=== PATIENT | male | born 1960 | race Caucasian/White ===

== ENCOUNTER 2016-09-18 17:37 | Emergency (ER) | payer OTHER ==
--- NOTE | 2016-09-18 18:50 | DIAGNOSTIC IMAGING REPORT ---
PROCEDURE: XR CHEST 1 VIEW INDICATION: COPD. Shortness of breath. TECHNIQUE: Portable AP view (1815 hours). (Two images). COMPARISON: None. FINDINGS: Pulmonary hyperexpansion and chronic obstructive pulmonary disease. There is a 1.8 cm nodular density overlying the right upper lung (overlying right anterior second rib). Lungs otherwise clear. Heart and mediastinum are normal. Thorax is normal. IMPRESSION: 1. Chronic obstructive pulmonary disease. 2. There is a 1.8 cm nodular density right upper lung. Comparison with prior outside studies is recommended. If these are unavailable, CT would be recommended. 3. Findings discussed with Dr. Kenneth Matthews.
--- NOTE | 2016-09-18 20:59 | ED CLINICAL REPORT ---
Clinical Report - Physicians/Mid Levels [facility] [address] [place] [address] 09/18/2016 17:37 Patient: GUSTAVO OSUNA Time Seen: 17:49. Arrived- By private vehicle. Historian- patient. HISTORY OF PRESENT ILLNESS Chief Complaint: DYSPNEA. This started today and is still present. It was abrupt in onset and has been intermittent and waxing/waning. The dyspnea is described as moderate. The patient has had a cough, wheezing and chills and experienced sweating episodes. He has had scant amounts of thick, brown sputum. No fever, calf pain or foot swelling. He has had chest soreness (from coughing). Recent medical care: The patient was seen recently at another facility in a clinic. ( He had a CT chest done 2 days ago at [place] for his pulmonary nodule). REVIEW OF SYSTEMS No chills, fever, sweats, calf pain or chest pain. No cough, difficulty breathing, pedal edema, palpitations or abdominal pain. No constipation, diarrhea, nausea, vomiting or urinary problems. He has home O2. All systems otherwise negative, except as recorded above. PAST HISTORY PCP - [facility] - [place]. Problems: Pulmonary Nodule. Back Pain. COPD - Chronic Obstructive Pulmonary Disease. Medications: Albuterol Sulfate Inhalation. Fluticasone Propionate (Inhal) Inhalation. Combivent. Gabapentin Oral. Allergies: Penicillins. SOCIAL HISTORY Current every day light tobacco smoker (cigarette)- less than 1/2 a pack per day (None for the past 4 days). Heavy alcohol use; consumes liquor occasionally. History of drug use: marijuana. Is a local resident. FAMILY HISTORY Denies family medical history. ADDITIONAL NOTES The nursing notes have been reviewed. PHYSICAL EXAM Vital Signs: 09/18/2016 17:51 BP: 161/101. HR: 126. RR: 28. O2 saturation: 95%. Temp: 98.1 F. Have been reviewed. Appearance: Alert. No acute distress. Eyes: Pupils equal, round and reactive to light. ENT: Pharynx normal. Uvula midline. Neck: Normal inspection. No jugular venous distention. Neck supple. CVS: Normal heart rate and rhythm. Heart sounds normal. Respiratory: Decreased air movement. Abdomen: Soft and nontender. No organomegaly. Back: Normal inspection. Skin: Skin warm and dry. Normal skin color. Normal skin turgor. Extremities: Calf tenderness. Extremities exhibit normal ROM. No lower extremity edema. LABS, X-RAYS, AND EKG EKG: Rate: 115. Right axis deviation. pulmonary disease pattern. Prior EKG unavailable. The study has been independently viewed by me. Chest X-ray: (IMPRESSION: 1. Chronic obstructive pulmonary disease. 2. There is a 1.8 cm nodular density right upper lung. Comparison with prior outside studies is recommended. If these are unavailable, CT would be recommended.). The X-rays were interpreted contemporaneously by me and discussed with the radiologist. Laboratory Tests: CBC w Diff: (NBA: 09/18/2016 18:00) ( [facility] Final results Test Result Flag Units (Reference) WHITE BLOOD COUNT 15.8 H K/uL (4.5-11.5) RED BLOOD COUNT 4.69 M/uL (4.50-5.90) HEMOGLOBIN 13.4 L gm/dL (13.5-17.5) HEMATOCRIT 41.5 % (41.0-53.0) MEAN CELL VOLUME 89 fL (80-100) MEAN CORPUSCULAR HGB 29 pg (26-34) MEAN CORPUSCULAR HGB CONC 32 g/dL (31-37) RED CELL DISTRIBUTION WIDTH 15.0 H % (11.6-14.8) PLATELET COUNT 411 H K/uL (150-400) NEUTROPHIL % 78.3 H % (50-75) LYMPH % 16.1 L % (25-40) MONO % 4.6 % (3-14) EOSINOPHIL % 0.6 % (0-4) BASOPHIL % 0.4 % (0-2) PT with INR: (NBA: 09/18/2016 18:00) ( [facility]21) Final results Test Result Flag Units (Reference) INR 1.0 (0.8-1.2) Low Intensity Therapy: INR 1.5-2.0 PT range 18.5-23.1Mod.Intensity Therapy: INR 2.0-3.0 PT range 23.1-31.5High Intensity Therapy: INR 2.5-3.5 PT range 27.4-35.5High Intensity Therapy 2: INR 3.0-4.0 PT range 31.5-39.3 APTT 30 SECONDS (24-34) BNP: (NBA: 09/18/2016 18:00) ( [facility] [place] 19:16) Final results Test Result Flag Units (Reference) B-TYPE NATRIURETIC PEPTIDE 23.0 pg/ml (5-100) Lactate, Serum: (NBA: 09/18/2016 18:00) ( [facility] 09/18[facility] 18:33) Final results Test Result Flag Units (Reference) LACTIC ACID 0.9 mmol/L (0.4-2.0) CHEM 13 PANEL: (NBA: 09/18/2016 18:00) ( [facility]18[facility] 18:33) Final results Test Result Flag Units (Reference) GLUCOSE 125 H mg/dL (70-110) BUN 9 mg/dL (7-18) CREATININE 0.7 mg/dL (0.6-1.3) Estimated GFR >60 mL/min Estimated GFR- >60 mL/min Note: Persistent reduction over 3 months in eGFR<60 mL/min/1.73 m2 defines CKD. Patients with eGFR values>=60 mL/min/1.73 m2 may also have CKD if evidence ofpersistent proteinuria. Additional information may be foundat [email or web address].org. SODIUM 140 mmol/L (136-145) POTASSIUM 4.1 mmol/L (3.5-5.1) CHLORIDE 103 mmol/L (98-107) CARBON DIOXIDE 34 H mmol/L (21-32) CALCIUM 9.0 mg/dL (8.5-10.1) TOTAL PROTEIN 7.5 g/dL (6.4-8.2) ALBUMIN 3.6 g/dL (3.3-5.0) BILIRUBIN, TOTAL 0.6 mg/dL (0.0-1.0) ALKALINE PHOSPHATASE 63 U/L (46-116) AST (SGOT) 23 U/L (15-37) ALT (SGPT) 32 U/L (12-78) CPK 181 U/L (24-260) MAGNESIUM 1.8 mg/dL (1.8-2.4) TROPONIN I <0.05 ng/mL (0.00-1.5) TROPONIN REFERENCE RANGE:<0.1 NEGATIVE0.1-1.5 INDETERMINANT>1.5 POSITIVE Rapid Influenza Screen: (NBA: 09/18/2016 18:10) ( MsgRcvd 09/18/2016 18:43) Final results SPECIMEN DESCRIPTION: COMPUTER CONSULTANT SWAB Test Result Flag Units (Reference) RAPID INFLUENZA SCREEN DATE: 09/18/16 INFLUENZA A: NEGATIVE SCREEN FOR INFLUENZA A INFLUENZA B: NEGATIVE SCREEN FOR INFLUENZA B . PROGRESS AND PROCEDURES Patient/family counseled. Old medical records ordered. Disposition: Discharged. Condition: stable. CLINICAL IMPRESSION Pulmonary nodule right upper lobe and left upper lobe. Acute exacerbation of COPD. INSTRUCTIONS Avoid tobacco smoke. Do not smoke- benefits of smoking cessation discussed (>3 -10 minutes). Seek medical help to quit smoking. Warnings: Further evaluation is necessary. GENERAL WARNINGS: Return or contact your physician immediately if your condition worsens or changes unexpectedly, if not improving as expected, or if other problems arise. Prescription Medications: Prednisone 20 mg: take 3 orally every day for 5 days. Dispense fifteen (15). No refills. Zithromax 250 mg tablets: take 1 orally every day for 4 days. Total course 4 days. No refills. Substitution is permissible. Follow-up: Follow up with your doctor in five days. Call for an appointment. Follow up with a typing pool supervisor as scheduled. Understanding of the discharge instructions verbalized by patient. (Electronically signed by Kenneth Matthews MD 09/23/2016 3:37) Addenda for GUSTAVO OSUNA VisitID: [id number] Date: 09/18/2016 09/18/2016 21:28 Duoneb (Ipratropium-Albuterol) Neb [place] Nebulizer 1 unit dose given. Given by the respiratory therapist. Allergies verified and confirmed 5 rights. (Electronically signed by Yarelis Mesa R.N. - 09/18/2016 21:28)
--- NOTE | 2016-09-18 20:59 | ED CLINICAL REPORT ---
Clinical Report - Physicians/Mid Levels [facility] [address] [place] [address] 09/18/2016 17:37 Patient: GUSTAVO OSUNA Time Seen: 17:49. Arrived- By private vehicle. Historian- patient. HISTORY OF PRESENT ILLNESS Chief Complaint: DYSPNEA. This started today and is still present. It was abrupt in onset and has been intermittent and waxing/waning. The dyspnea is described as moderate. The patient has had a cough, wheezing and chills and experienced sweating episodes. He has had scant amounts of thick, brown sputum. No fever, calf pain or foot swelling. He has had chest soreness (from coughing). Recent medical care: The patient was seen recently at another facility in a clinic. ( He had a CT chest done 2 days ago at [place] for his pulmonary nodule). REVIEW OF SYSTEMS No chills, fever, sweats, calf pain or chest pain. No cough, difficulty breathing, pedal edema, palpitations or abdominal pain. No constipation, diarrhea, nausea, vomiting or urinary problems. He has home O2. All systems otherwise negative, except as recorded above. PAST HISTORY PCP - [facility] - [place]. Problems: Pulmonary Nodule. Back Pain. COPD - Chronic Obstructive Pulmonary Disease. Medications: Albuterol Sulfate Inhalation. Fluticasone Propionate (Inhal) Inhalation. Combivent. Gabapentin Oral. Allergies: Penicillins. SOCIAL HISTORY Current every day light tobacco smoker (cigarette)- less than 1/2 a pack per day (None for the past 4 days). Heavy alcohol use; consumes liquor occasionally. History of drug use: marijuana. Is a local resident. FAMILY HISTORY Denies family medical history. ADDITIONAL NOTES The nursing notes have been reviewed. PHYSICAL EXAM Vital Signs: 09/18/2016 17:51 BP: 161/101. HR: 126. RR: 28. O2 saturation: 95%. Temp: 98.1 F. Have been reviewed. Appearance: Alert. No acute distress. Eyes: Pupils equal, round and reactive to light. ENT: Pharynx normal. Uvula midline. Neck: Normal inspection. No jugular venous distention. Neck supple. CVS: Normal heart rate and rhythm. Heart sounds normal. Respiratory: Decreased air movement. Abdomen: Soft and nontender. No organomegaly. Back: Normal inspection. Skin: Skin warm and dry. Normal skin color. Normal skin turgor. Extremities: Calf tenderness. Extremities exhibit normal ROM. No lower extremity edema. LABS, X-RAYS, AND EKG EKG: Rate: 115. Right axis deviation. pulmonary disease pattern. Prior EKG unavailable. The study has been independently viewed by me. Chest X-ray: (IMPRESSION: 1. Chronic obstructive pulmonary disease. 2. There is a 1.8 cm nodular density right upper lung. Comparison with prior outside studies is recommended. If these are unavailable, CT would be recommended.). The X-rays were interpreted contemporaneously by me and discussed with the radiologist. Laboratory Tests: CBC w Diff: (NBA: 09/18/2016 18:00) ( [facility] 18:17) Final results Test Result Flag Units (Reference) WHITE BLOOD COUNT 15.8 H K/uL (4.5-11.5) RED BLOOD COUNT 4.69 M/uL (4.50-5.90) HEMOGLOBIN 13.4 L gm/dL (13.5-17.5) HEMATOCRIT 41.5 % (41.0-53.0) MEAN CELL VOLUME 89 fL (80-100) MEAN CORPUSCULAR HGB 29 pg (26-34) MEAN CORPUSCULAR HGB CONC 32 g/dL (31-37) RED CELL DISTRIBUTION WIDTH 15.0 H % (11.6-14.8) PLATELET COUNT 411 H K/uL (150-400) NEUTROPHIL % 78.3 H % (50-75) LYMPH % 16.1 L % (25-40) MONO % 4.6 % (3-14) EOSINOPHIL % 0.6 % (0-4) BASOPHIL % 0.4 % (0-2) PT with INR: (NBA: 09/18/2016 18:00) ( [facility] [place]18[facility] 18:21) Final results Test Result Flag Units (Reference) INR 1.0 (0.8-1.2) Low Intensity Therapy: INR 1.5-2.0 PT range 18.5-23.1Mod.Intensity Therapy: INR 2.0-3.0 PT range 23.1-31.5High Intensity Therapy: INR 2.5-3.5 PT range 27.4-35.5High Intensity Therapy 2: INR 3.0-4.0 PT range 31.5-39.3 APTT 30 SECONDS (24-34) BNP: (NBA: 09/18/2016 18:00) ( [facility] [place] 09/18/2016 19:16) Final results Test Result Flag Units (Reference) B-TYPE NATRIURETIC PEPTIDE 23.0 pg/ml (5-100) Lactate, Serum: (NBA: 09/18/2016 18:00) ( [facility] 09/18[facility]2016 18:33) Final results Test Result Flag Units (Reference) LACTIC ACID 0.9 mmol/L (0.4-2.0) CHEM 13 PANEL: (NBA: 09/18/2016 18:00) ( [facility] 09/18[facility] 18:33) Final results Test Result Flag Units (Reference) GLUCOSE 125 H mg/dL (70-110) BUN 9 mg/dL (7-18) CREATININE 0.7 mg/dL (0.6-1.3) Estimated GFR >60 mL/min Estimated GFR- >60 mL/min Note: Persistent reduction over 3 months in eGFR<60 mL/min/1.73 m2 defines CKD. Patients with eGFR values>=60 mL/min/1.73 m2 may also have CKD if evidence ofpersistent proteinuria. Additional information may be foundat [email or web address]. SODIUM 140 mmol/L (136-145) POTASSIUM 4.1 mmol/L (3.5-5.1) CHLORIDE 103 mmol/L (98-107) CARBON DIOXIDE 34 H mmol/L (21-32) CALCIUM 9.0 mg/dL (8.5-10.1) TOTAL PROTEIN 7.5 g/dL (6.4-8.2) ALBUMIN 3.6 g/dL (3.3-5.0) BILIRUBIN, TOTAL 0.6 mg/dL (0.0-1.0) ALKALINE PHOSPHATASE 63 U/L (46-116) AST (SGOT) 23 U/L (15-37) ALT (SGPT) 32 U/L (12-78) CPK 181 U/L (24-260) MAGNESIUM 1.8 mg/dL (1.8-2.4) TROPONIN I <0.05 ng/mL (0.00-1.5) TROPONIN REFERENCE RANGE:<0.1 NEGATIVE0.1-1.5 INDETERMINANT>1.5 POSITIVE Rapid Influenza Screen: (NBA: 09/18/2016 18:10) ( MsgRcvd 09/18/2016 18:43) Final results SPECIMEN DESCRIPTION: C 40A CREW CHIEF SWAB Test Result Flag Units (Reference) RAPID INFLUENZA SCREEN DATE: 09/18/16 INFLUENZA A: NEGATIVE SCREEN FOR INFLUENZA A INFLUENZA B: NEGATIVE SCREEN FOR INFLUENZA B . PROGRESS AND PROCEDURES Patient/family counseled. Old medical records ordered. Disposition: Discharged. Condition: stable. CLINICAL IMPRESSION Pulmonary nodule right upper lobe and left upper lobe. Acute exacerbation of COPD. INSTRUCTIONS Avoid tobacco smoke. Do not smoke- benefits of smoking cessation discussed (>3 -10 minutes). Seek medical help to quit smoking. Warnings: Further evaluation is necessary. GENERAL WARNINGS: Return or contact your physician immediately if your condition worsens or changes unexpectedly, if not improving as expected, or if other problems arise. Prescription Medications: Prednisone 20 mg: take 3 orally every day for 5 days. Dispense fifteen (15). No refills. Zithromax 250 mg tablets: take 1 orally every day for 4 days. Total course 4 days. No refills. Substitution is permissible. Follow-up: Follow up with your doctor in five days. Call for an appointment. Follow up with a international nurse as scheduled. Understanding of the discharge instructions verbalized by patient. (Electronically signed by Kenneth Matthews MD 09/23/2016 3:37) Addenda for GUSTAVO OSUNA VisitID: [id number] Date: 09/18/2016 09/18/2016 21:28 Duoneb (Ipratropium-Albuterol) Neb TX Nebulizer 1 unit dose given. Given by the respiratory therapist. Allergies verified and confirmed 5 rights. (Electronically signed by Yarelis Mesa R.N. - 09/18/2016 21:28)
--- NOTE | 2016-09-18 21:00 | ED NURSING NOTES ---
Clinical Report - Nurses [facility] [address] [place] [address] 09/18/2016 17:37 Patient: GUSTAVO OSUNA TRIAGE Triage time 17:45 Sep 18 2016. Acuity: LEVEL 3. Chief Complaint: SHORTNESS OF BREATH. 17:51 09/18/16. SEPSIS SCREEN: Sepsis Screen: positive heart rate greater than 90 and respiratory rate greater than 20. --17:51 Yarelis Mesa R.N. 17:51 09/18/16. BP: 161/101. HR: 126. RR: 28. O2 saturation: 95%. Temp: 98.1 F. Pain level now 0/10. --17:51 Yarelis Mesa R.N. Weight: 63.5 kg stated. Height/Length: 74 inches Per Patient. BMI: 18. --17:44 Yarelis Mesa R.N. Medications Gabapentin Oral. --17:51 Yarelis Mesa R.N. Combivent. --17:51 Yarelis Mesa R.N. Fluticasone Propionate (Inhal) Inhalation. --17:51 Yarelis Mesa R.N. Medication/allergy information source: the patient. --17:51 Yarelis Mesa R.N. Allergies Penicillins. --17:49 Yarelis Mesa R.N. History Arrived by EMS. Historian: patient. Onset. (7 days ago). He has had a cough productive of moderate amounts of brown sputum. No fever or chills. 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 PAST MEDICAL HX: Has not received seasonal influenza immunization. SOCIAL HX: Smoker- current status unknown (stopped 4 days ago). No alcohol use or drug use. No infectious disease exposure. ABUSE ASSESSMENT: No report of abuse. SELF HARM ASSESSMENT: A self harm assessment was performed. The patient answered "no" to the question "Have you recently felt down, depressed, or hopeless?", "Have you noticed less interest or pleasure in doing things?", "Do you have thoughts of harming or killing yourself?", "Are you here because you tried to hurt yourself?", "Have you ever tried to hurt yourself before today?", "Have you recently had thoughts about harming or killing others?" and "Do you have any dangerous items in your possession?". FALL RISK ASSESSMENT: Fall risk assessment completed. No fall risk identified. NUTRITIONAL RISK ASSESSMENT: The nutritional risk assessment revealed no deficiencies. FUNCTIONAL ASSESSMENT: Functional assessment: no impairments noted. LEARNING NEEDS ASSESSMENT: The learning needs assessment revealed no barriers. SKIN INTEGRITY ASSESSMENT: Skin integrity risk assessment completed. No skin integrity risk identified. --17:51 Yarelis Mesa R.N. PROBLEMS: Back Pain. COPD - Chronic Obstructive Pulmonary Disease. --17:51 Yarelis Mesa R.N. Interventions ID band on patient. --17:51 Yarelis Mesa R.N. PHYSICAL ASSESSMENT 17:52 09/18/16. To room via stretcher. GENERAL / NEURO / PSYCH: Alert. Oriented X 4. Appears in distress. HEENT: Mucous membranes are pink. RESPIRATORY: Moderate respiratory distress. The patient can speak a few words at a time. Prolonged expirations. Cough productive of moderate amounts of brown sputum. Decreased breath sounds. CVS: Capillary refill less than 2 seconds. GI / : Bowel sounds within normal limits. SKIN: Skin is warm and dry. Normal skin turgor. --17:52 Yarelis Mesa R.N. NURSING PROGRESS NOTES 17:53 09/18/16. The initial plan of care for this patient includes an assessment with efforts to address the patient's anxiety; impairment of the respiratory system. This plan of care was discussed with the patient. Oxygen administered at 3 liters. media monitor, pulse oximeter and NIBP monitor placed on patient; pvc monitor- Lead II; monitor alarms on. Patient gowned. Reassurance given to the patient. Two patient identifiers checked. Call light placed in reach. Side rails up x 2. Bed placed in lowest position. Brakes of bed on. --17:53 Yarelis Mesa R.N. 18:00 09/18/2016 Site #1 started prior to arrival by EMS via IV in the left forearm with an 18g angiocath, with good blood return. Saline lock flushed with 5 mL saline. --18:07 Yarelis Mesa R.N. 18:00 09/18/16. Patient ID band checked for patient name and birthdate: patient confirmed. Blood samples drawn from the left forearm peripheral IV site by nurse per protocol: rainbow set. Initial blood discarded and additional blood sent to lab. Line flushed with 10 mL normal saline post blood draw (LACTIC ACID DRAWN). --18:07 Yarelis Mesa R.N. 18:43 09/18/16. BP: 146/77. HR: 118. RR: 24. O2 saturation: 100%. Pain level now 3/10. --18:44 Yarelis Mesa R.N. Cardiac rhythm: sinus tachycardia. --18:44 Yarelis Mesa R.N. EKG time: (1840). EKG was performed by a tech and shown to the ED physician. --19:00 Kaleigh Mathews 19:25 09/18/2016 SOLU-MEDROL (MethylPREDNISolone Sodium Succ) IVP 125 mg given over 1 minute(s) via site #1. Allergies verified and confirmed 5 rights. IV patency established. IV site checked: no pain, redness, or swelling. IV flushed thoroughly pre- and post-medication administration. IVP given by RN. --19:30 Yarelis Mesa R.N. 19:32 09/18/2016 Zithromax PO Tablets 500 mg given. Allergies verified and confirmed 5 rights. --19:33 Yarelis Mesa R.N. 20:09 09/18/16. Reassessment after medication administered. Overall patient status is improved- he states feels better. CVS: Normal sinus rhythm noted. SKIN: Skin is warm. Skin color within normal limits. --20:09 Yarelis Mesa R.N. Cardiac rhythm: sinus tachycardia. The patient is calm and resting quietly. Overall patient status is improved- he states feels better. GENERAL / NEURO / PSYCH: The patient reports fatigue. RESPIRATORY: Decreased breath sounds. Patient waiting for disposition. --21:08 Yarelis Mesa R.N. 21:07 09/18/16. BP: 96/74. HR: 104. RR: 24. O2 saturation: 98%. Pain level now 0/10. --21:08 Yarelis Mesa R.N. DISPOSITION / DISCHARGE 21:27 09/18/2016 Site #1 removed upon discharge. Catheter intact. Bandaid applied. --21:27 Yarelis Mesa R.N. 21:27 09/18/16. Condition at departure: improved and stable. The goals identified in the patient's plan of care were met. No learning barriers present. Reviewed medication(s) side effects, precautions, dosing and course information. Prescription(s) given to the patient. Reviewed fever care and nebulizer use instructions. Reviewed referral to a lines tender and primary care physician for followup. Patient verbalized understanding. Written instructions provided in Croatian. The patient was discharged home and accompanied by family. He left the Emergency Department in a wheelchair and via private vehicle. Family member driving. FALL RISK ASSESSMENT: Fall risk assessment completed. No fall risk identified. --21:27 Yarelis Mesa R.N. 21:07 09/18/16. BP: 96/74. HR: 104. RR: 24. O2 saturation: 98%. Pain level now 0/10. --21:27 Yarelis Mesa R.N. Departure time: :Sep 18 2016. --21:27 Yarelis Mesa R.N. Locked/Released at 09/18/2016 21:28 by Yarelis Mesa R.N.
--- NOTE | 2016-09-18 21:00 | ED NURSING NOTES ---
Clinical Report - Nurses [facility] [address] [place] [address] 09/18/2016 17:37 Patient: GUSTAVO OSUNA TRIAGE Triage time 17:45 Sep 18 2016. Acuity: LEVEL 3. Chief Complaint: SHORTNESS OF BREATH. 17:51 09/18/16. SEPSIS SCREEN: Sepsis Screen: positive heart rate greater than 90 and respiratory rate greater than 20. --17:51 Yarelis Mesa R.N. 17:51 09/18/16. BP: 161/101. HR: 126. RR: 28. O2 saturation: 95%. Temp: 98.1 F. Pain level now 0/10. --17:51 Yarelis Mesa R.N. Weight: 63.5 kg stated. Height/Length: 74 inches Per Patient. BMI: 18. --17:44 Yarelis Mesa R.N. Medications Gabapentin Oral. --17:51 Yarelis Mesa R.N. Combivent. --17:51 Yarelis Mesa R.N. Fluticasone Propionate (Inhal) Inhalation. --17:51 Yarelis Mesa R.N. Medication/allergy information source: the patient. --17:51 Yarelis Mesa R.N. Allergies Penicillins. --17:49 Yarelis Mesa R.N. History Arrived by EMS. Historian: patient. Onset. (7 days ago). He has had a cough productive of moderate amounts of brown sputum. No fever or chills. Treatment CLOTH TESTER QUALITY: See EMS report. PAST MEDICAL HX: Has not received seasonal influenza immunization. SOCIAL HX: Smoker- current status unknown (stopped 4 days ago). No alcohol use or drug use. No infectious disease exposure. ABUSE ASSESSMENT: No report of abuse. SELF HARM ASSESSMENT: A self harm assessment was performed. The patient answered "no" to the question "Have you recently felt down, depressed, or hopeless?", "Have you noticed less interest or pleasure in doing things?", "Do you have thoughts of harming or killing yourself?", "Are you here because you tried to hurt yourself?", "Have you ever tried to hurt yourself before today?", "Have you recently had thoughts about harming or killing others?" and "Do you have any dangerous items in your possession?". FALL RISK ASSESSMENT: Fall risk assessment completed. No fall risk identified. NUTRITIONAL RISK ASSESSMENT: The nutritional risk assessment revealed no deficiencies. FUNCTIONAL ASSESSMENT: Functional assessment: no impairments noted. LEARNING NEEDS ASSESSMENT: The learning needs assessment revealed no barriers. SKIN INTEGRITY ASSESSMENT: Skin integrity risk assessment completed. No skin integrity risk identified. --17:51 Yarelis Mesa R.N. PROBLEMS: Back Pain. COPD - Chronic Obstructive Pulmonary Disease. --17:51 Yarelis Mesa R.N. Interventions ID band on patient. --17:51 Yarelis Mesa R.N. PHYSICAL ASSESSMENT 17:52 09/18/16. To room via stretcher. GENERAL / NEURO / PSYCH: Alert. Oriented X 4. Appears in distress. HEENT: Mucous membranes are pink. RESPIRATORY: Moderate respiratory distress. The patient can speak a few words at a time. Prolonged expirations. Cough productive of moderate amounts of brown sputum. Decreased breath sounds. CVS: Capillary refill less than 2 seconds. GI / : Bowel sounds within normal limits. SKIN: Skin is warm and dry. Normal skin turgor. --17:52 Yarelis Mesa R.N. NURSING PROGRESS NOTES 17:53 09/18/16. The initial plan of care for this patient includes an assessment with efforts to address the patient's anxiety; impairment of the respiratory system. This plan of care was discussed with the patient. Oxygen administered at 3 liters. lunchroom monitor, pulse oximeter and NIBP monitor placed on patient; monitoring engineer- Lead II; monitor alarms on. Patient gowned. Reassurance given to the patient. Two patient identifiers checked. Call light placed in reach. Side rails up x 2. Bed placed in lowest position. Brakes of bed on. --17:53 Yarelis Mesa R.N. 18:00 09/18/2016 Site #1 started prior to arrival by EMS via IV in the left forearm with an 18g angiocath, with good blood return. Saline lock flushed with 5 mL saline. --18:07 Yarelis Mesa R.N. 18:00 09/18/16. Patient ID band checked for patient name and birthdate: patient confirmed. Blood samples drawn from the left forearm peripheral IV site by nurse per protocol: rainbow set. Initial blood discarded and additional blood sent to lab. Line flushed with 10 mL normal saline post blood draw (LACTIC ACID DRAWN). --18:07 Yarelis Mesa R.N. 18:43 09/18/16. BP: 146/77. HR: 118. RR: 24. O2 saturation: 100%. Pain level now 3/10. --18:44 Yarelis Mesa R.N. Cardiac rhythm: sinus tachycardia. --18:44 Yarelis Mesa R.N. EKG time: (1840). EKG was performed by a tech and shown to the ED physician. --19:00 Kaleigh Mathews 19:25 09/18/2016 SOLU-MEDROL (MethylPREDNISolone Sodium Succ) IVP 125 mg given over 1 minute(s) via site #1. Allergies verified and confirmed 5 rights. IV patency established. IV site checked: no pain, redness, or swelling. IV flushed thoroughly pre- and post-medication administration. IVP given by RN. --19:30 Yarelis Mesa R.N. 19:32 09/18/2016 Zithromax PO Tablets 500 mg given. Allergies verified and confirmed 5 rights. --19:33 Yarelis Mesa R.N. 20:09 09/18/16. Reassessment after medication administered. Overall patient status is improved- he states feels better. CVS: Normal sinus rhythm noted. SKIN: Skin is warm. Skin color within normal limits. --20:09 Yarelis Mesa R.N. Cardiac rhythm: sinus tachycardia. The patient is calm and resting quietly. Overall patient status is improved- he states feels better. GENERAL / NEURO / PSYCH: The patient reports fatigue. RESPIRATORY: Decreased breath sounds. Patient waiting for disposition. --21:08 Yarelis Mesa R.N. 21:07 09/18/16. BP: 96/74. HR: 104. RR: 24. O2 saturation: 98%. Pain level now 0/10. --21:08 Yarelis Mesa R.N. DISPOSITION / DISCHARGE 21:27 09/18/2016 Site #1 removed upon discharge. Catheter intact. Bandaid applied. --21:27 Yarelis Mesa R.N. 21:27 09/18/16. Condition at departure: improved and stable. The goals identified in the patient's plan of care were met. No learning barriers present. Reviewed medication(s) side effects, precautions, dosing and course information. Prescription(s) given to the patient. Reviewed fever care and nebulizer use instructions. Reviewed referral to a antitank assault gunner and primary care physician for followup. Patient verbalized understanding. Written instructions provided in Cypriot. The patient was discharged home and accompanied by family. He left the Emergency Department in a wheelchair and via private vehicle. Family member driving. FALL RISK ASSESSMENT: Fall risk assessment completed. No fall risk identified. --21:27 Yarelis Mesa R.N. 21:07 09/18/16. BP: 96/74. HR: 104. RR: 24. O2 saturation: 98%. Pain level now 0/10. --21:27 Yarelis Mesa R.N. Departure time: :Sep 18 2016. --21:27 Yarelis Mesa R.N. Locked/Released at 09/18/2016 21:28 by Yarelis Mesa R.N.
--- NOTE | 2016-09-18 21:00 | ED ORDER SUMMARY ---
..... Patient: GUSTAVO OSUNA OrderSheet [facility] VisitID: [id number] [address] [place] [address] 56y, M Registration Date/Time: 09/18/2016 ORDER SHEET Weight: 63.5 kg (stated) Allergies: Penicillins GENERAL ORDERS: Chest 1V (room 14) Urgent (18:04 09/18/2016 EInderbitzen R.N. per protocol) (18:23 EInderbitzen R.N.) Sport Shoe Spike Assembler (Continuous) (18:04 09/18/2016 EInderbitzen R.N. per protocol) (18:22 EInderbitzen R.N.) CBC w Diff Urgent (18:09/18/2016 EInderbitzen R.N. per protocol) (18:23 EInderbitzen R.N.) CMP Urgent (18:09/18/2016 EInderbitzen R.N. per protocol) (18:23 EInderbitzen R.N.) Cardiac Panel Stat (18:09/18/2016 EInderbitzen R.N. per protocol) (18:23 EInderbitzen R.N.) PT with INR Urgent (18:04 09/18/2016 EInderbitzen R.N. per protocol) (18:23 EInderbitzen R.N.) PTT Urgent (18:09/18/2016 EInderbitzen R.N. per protocol) (18:23 EInderbitzen R.N.) Oxygen (2 L/min) (NC) (18:04 09/18/2016 EInderbitzen R.N. per protocol) (18:22 EInderbitzen R.N.) Pulse oximeter (18:09/18/2016 EInderbitzen R.N. per protocol) (18:22 EInderbitzen R.N.) EKG - ER Stat (18:09/18/2016 EInderbitzen R.N. per protocol) (18:23 EInderbitzen R.N.) Lactate, Serum Urgent (18:09/18/2016 EInderbitzen R.N. per protocol) (18:23 EInderbitzen R.N.) Rapid Influenza Screen (Nasal Pharyngeal) (speed reading teacher swab) Urgent (18:05 09/18/2016 EInderbitzen R.N. verbal order read back to Charles WEST) (18:23 EInderbitzen R.N.) BNP Urgent (18:50 09/18/2016 Charles WEST) (Ack 18:54 LTapper) MEDICATION ORDERS: Zithromax PO 500 mg (NOW) (19:26 09/18/2016 Charles WEST) (19:33 EIndermumtaz R.N.) DuoNeb Neb Tx 1 unit dose (NOW) (19:26 09/18/2016 Charles WEST) ([facility]ck 19:[facility]) IV FLUIDS: IV Saline Lock (18:23 09/18/2016 EIndermoraimazen R.N. verbal order read back to Charles WEST) (18:24 EInderbitzen R.N.) Solu-MEDROL IV 125 mg (NOW) (19:18 09/18/2016 Charles WEST) (19:30 EInderbitzen R.N.) ORDER SHEET NOTES: [Electronically signed by Yarelis Mesa R.N. (21:28 09/18/2016)] [Electronically signed by Kenneth Matthews MD (03:37 09/23/2016)] [Electronically locked/signed by Yarelis Mesa R.N. (21:28 09/18/2016)]
--- NOTE | 2016-09-18 21:00 | ED ORDER SUMMARY ---
..... Patient: GUSTAVO OSUNA OrderSheet [facility] VisitID: [id number] [address] [place] [address] 56y, M Registration Date/Time: 09/18/2016 ORDER SHEET Weight: 63.5 kg (stated) Allergies: Penicillins GENERAL ORDERS: Chest 1V (room 14) Urgent (18:04 09/18/2016 EInderbitzen R.N. per protocol) (18:23 EInderbitzen R.N.) Before School Babysitter (Continuous) (18:04 09/18/2016 EInderbitzen R.N. per protocol) (18:22 EInderbitzen R.N.) CBC w Diff Urgent (18:09/18/2016 EInderbitzen R.N. per protocol) (18:23 EInderbitzen R.N.) CMP Urgent (18:09/18/2016 EInderbitzen R.N. per protocol) (18:23 EInderbitzen R.N.) Cardiac Panel Stat (18:09/18/2016 EInderbitzen R.N. per protocol) (18:23 EInderbitzen R.N.) PT with INR Urgent (18:04 09/18/2016 EInderbitzen R.N. per protocol) (18:23 EInderbitzen R.N.) PTT Urgent (18:09/18/2016 EInderbitzen R.N. per protocol) (18:23 EInderbitzen R.N.) Oxygen (2 L/min) (NC) (18:04 09/18/2016 EInderbitzen R.N. per protocol) (18:22 EInderbitzen R.N.) Pulse oximeter (18:09/18/2016 EInderbitzen R.N. per protocol) (18:22 EInderbitzen R.N.) EKG - ER Stat (18:09/18/2016 EInderbitzen R.N. per protocol) (18:23 EInderbitzen R.N.) Lactate, Serum Urgent (18:09/18/2016 EInderbitzen R.N. per protocol) (18:23 EInderbitzen R.N.) Rapid Influenza Screen (Nasal Pharyngeal) (deputy commissioner swab) Urgent (18:05 09/18/2016 EInderbitzen R.N. verbal order read back to Charles WEST) (18:23 EInderbitzen R.N.) BNP Urgent (18:50 09/18/2016 Charles WEST) (Ack 18:54 LTapper) MEDICATION ORDERS: Zithromax PO 500 mg (NOW) (19:26 09/18/2016 Charles WEST) (19:33 EIndermumtaz R.N.) DuoNeb Neb Tx 1 unit dose (NOW) (19:26 09/18/2016 Charles WEST) (Ack 19:28 [facility] Nurse Paralegal) IV FLUIDS: IV Saline Lock (18:23 09/18/2016 EIndermoraimazen R.N. verbal order read back to Charles WEST) (18:24 EInderbitzen R.N.) Solu-MEDROL IV 125 mg (NOW) (19:18 09/18/2016 Charles WEST) (19:30 EInderbitzen R.N.) ORDER SHEET NOTES: [Electronically signed by Yarelis Mesa R.N. (21:28 09/18/2016)] [Electronically signed by Kenneth Matthews MD (03:37 09/23/2016)] [Electronically locked/signed by Yarelis Mesa R.N. (21:28 09/18/2016)]
--- NOTE | 2016-09-23 03:37 | ED MAR SUMMARY ---
..... Medication Administration Record [facility] [address] [place] [address] Patient: GUSTAVO OSUNA Visit ID: [id number] 56y, M Weight: 63.5 kg Height/Length: 74 in BMI: 18 ALLERGIES: Penicillins Given 19:25 09/18/2016 Yarelis Mesa R.N. Medication Administered: SOLU-MEDROL [IVP] (METHYLPREDNISOLONE SODIUM SUCC), Dose: 125 mg IVP over 1 minute(s), Site: #1 left forearm. Medication Ordered: Solu-MEDROL IV 125 mg (NOW). Given 19:32 09/18/2016 Yarelis Mesa R.N. Medication Administered: ZITHROMAX [PO], Dose: 500 mg Tablets PO. Medication Ordered: Zithromax PO 500 mg (NOW). Given 19:45 09/18/2016 Yarelis Mesa R.N. Medication Administered: DUONEB [NEB TX] (IPRATROPIUM-ALBUTEROL), Dose: 1 unit dose Nebulizer Neb TX. Medication Ordered: DuoNeb Neb Tx 1 unit dose (NOW).
--- NOTE | 2016-09-23 03:37 | ED MED RECONCILIATION SUMMARY ---
Patient: GUSTAVO OSUNA Medication Reconciliation Report [facility] VisitID: [id number] [place] [address] 56y, M Registration Date/Time: 09/18/2016 Weight: 63.5 kg Height/Length: 74 in. BMI: 18.0 ALLERGIES: Penicillins The patient's Home Medications are listed below: THE FOLLOWING MEDICATIONS NEED TO BE RECONCILED: Albuterol Sulfate Inhalation Combivent Fluticasone Propionate (Inhal) Inhalation Gabapentin Oral The source(s) of the original Home Medication information: patient The following Medications were given to the patient in the Emergency Department: SOLU-MEDROL [IVP] IVP 125 mg, administered: 09/18/2016 7:25:00 PM Zithromax [PO] PO 500 mg, administered: 09/18/2016 7:32:00 PM Duoneb [Neb Tx] Neb TX 1 unit dose, administered: 09/18/2016 7:45:00 PM The following Medications were prescribed to the patient: Prednisone 20 mg: take 3 orally every day for 5 days. Dispense fifteen (15). No refills. -- Kenneth Matthews MD Zithromax 250 mg tablets: take 1 orally every day for 4 days. Total course 4 days. No refills. Substitution is permissible. -- Kenneth Matthews MD
--- NOTE | 2016-09-23 03:37 | ED MED RECONCILIATION SUMMARY ---
Patient: GUSTAVO OSUNA Medication Reconciliation Report [facility] VisitID: [id number] [place] [address] 56y, M Registration Date/Time: 09/18/2016 Weight: 63.5 kg Height/Length: 74 in. BMI: 18.0 ALLERGIES: Penicillins The patient's Home Medications are listed below: THE FOLLOWING MEDICATIONS NEED TO BE RECONCILED: Albuterol Sulfate Inhalation Combivent Fluticasone Propionate (Inhal) Inhalation Gabapentin Oral The source(s) of the original Home Medication information: patient The following Medications were given to the patient in the Emergency Department: SOLU-MEDROL [IVP] IVP 125 mg, administered: 09/18/2016 7:25:00 PM Zithromax [PO] PO 500 mg, administered: 09/18/2016 7:32:00 PM Duoneb [Neb Tx] Neb TX 1 unit dose, administered: 09/18/2016 7:45:00 PM The following Medications were prescribed to the patient: Prednisone 20 mg: take 3 orally every day for 5 days. Dispense fifteen (15). No refills. -- Kenneth Matthews MD Zithromax 250 mg tablets: take 1 orally every day for 4 days. Total course 4 days. No refills. Substitution is permissible. -- Kenneth Matthews MD
--- NOTE | 2016-09-23 03:37 | ED MAR SUMMARY ---
..... Medication Administration Record [facility] [address] [place] [address] Patient: GUSTAVO OSUNA Visit ID: [id number] 56y, M Weight: 63.5 kg Height/Length: 74 in BMI: 18 ALLERGIES: Penicillins Given 19:25 09/18/2016 Yarelis Mesa R.N. Medication Administered: SOLU-MEDROL [IVP] (METHYLPREDNISOLONE SODIUM SUCC), Dose: 125 mg IVP over 1 minute(s), Site: #1 left forearm. Medication Ordered: Solu-MEDROL IV 125 mg (NOW). Given 19:32 09/18/2016 Yarelis Mesa R.N. Medication Administered: ZITHROMAX [PO], Dose: 500 mg Tablets PO. Medication Ordered: Zithromax PO 500 mg (NOW). Given 19:45 09/18/2016 Yarelis Mesa R.N. Medication Administered: DUONEB [NEB TX] (IPRATROPIUM-ALBUTEROL), Dose: 1 unit dose Nebulizer Neb TX. Medication Ordered: DuoNeb Neb Tx 1 unit dose (NOW).
--- NOTE | 2016-09-23 03:37 | ED DISCHARGE INSTRUCTIONS ---
Patient: GUSTAVO OSUNA General Instructions [facility] VisitID: [id number] [place] [address] 56y, M Registration Date/Time: 09/18/2016 Pulmonary nodule right upper lobe and left upper lobe. Acute exacerbation of COPD. INSTRUCTIONS Avoid tobacco smoke. Do not smoke- benefits of smoking cessation discussed (>3 -10 minutes). Seek medical help to quit smoking. Warnings: Further evaluation is necessary. GENERAL WARNINGS: Return or contact your physician immediately if your condition worsens or changes unexpectedly, if not improving as expected, or if other problems arise. Prescription Medications: Prednisone 20 mg: take 3 orally every day for 5 days. Dispense fifteen (15). No refills. Zithromax 250 mg tablets: take 1 orally every day for 4 days. Total course 4 days. No refills. Substitution is permissible. Follow-up: Follow up with your doctor in five days. Call for an appointment. Follow up with a hurricane tracker as scheduled. Understanding of the discharge instructions verbalized by patient. ADDITIONAL INFORMATION COPD Flare Both emphysema and chronic bronchitis are forms of chronic obstructive pulmonary disease (COPD). It is most often caused by many years of smoking tobacco. Many things can make your lung disease suddenly get worse. These causes include the common cold, pneumonia, acute bronchitis, missing doses of your regular breathing medicines, or being around smoke, dust, or other air pollutants. A COPD flare may last 7 to 14 days. Your doctor may prescribe medicineto relax your airways and prevent wheezing. Your doctor may also prescribe antibiotics if he or she thinks you havea bacterial infection. Prednisone can helpease inflammation in a severe attack. Home care Here are things you can do at home: Drink lots of water or other fluids (at least 10 glasses a day) during an attack. This will loosen lung secretions and make it easier to breathe. If you have heart or kidney disease, check with your doctor before you drink extra amounts of fluids. Take prescribed medicine exactly at the times advised. If you have a hand-held inhaler or aerosol breathing medicine, don't use it more than once every 4 hours, unless your doctor tells you to. If you were givenan antibiotic or prednisone, take all of the medicine even if you are feeling better after a few days. Don't smoke. Avoid being aroundthe smoke of others. If you were given an inhaler, use it exactly as directed. If you need to use it more often than prescribed, your condition may be getting worse. Call your doctor. Follow-up care Follow up with your health care provider.If you are 65 or older or have chronic asthma or COPD, you should get a single dose of the pneumococcal vaccine and aflu shot each year. You may need a second dose of the pneumococcal vaccine if you had the first dose at a younger age. Your health care provider will let you know if you need a second dose. For all other people, the usual dose for the pneumococcal vaccine is 1 or 2 shots. Yourprovider can discuss this with you. When to seek medical care Get prompt medical attention ifany of these occur: Increased wheezing or shortness of breath Need to use your inhalers more often than usual without relief Fever of 100.4F(38C) or higher, or as directed by your health care provider Coughing up lots of dark-colored or bloody sputum (mucus) Chest pain with each breath You do not start to improve within 24 hours Bronchitis (Adult: Abx Tx) BRONCHITIS is an infection of the air passages (bronchial tubes). It often occurs during the common cold. Symptoms include cough with mucus (phlegm) and low-grade fever. Bronchitis usually lasts 7-14 days. Mild cases can be treated with simple home remedies. More severe infection is treated with an antibiotic. Home Care: If symptoms are severe, rest at home for the first 2-3 days. When you resume activity, don't let yourself get too tired. Do not smoke. Avoid being exposed to the smoke of others. You may use acetaminophen (Tylenol) or ibuprofen (Motrin, Advil) to control fever or pain, unless another medicine was prescribed for this. [NOTE: If you have chronic liver or kidney disease or ever had a stomach ulcer or GI bleeding, talk with your doctor before using these medicines.] Your appetite may be poor, so a light diet is fine. Avoid dehydration by drinking 6-8 glasses of fluids per day (water, soft, drinks, juices, tea, soup, etc.). Extra fluids will help loosen secretions in the lungs. Qkyv-prc-xvbdseb cough medicines that containdextromethorphan(such as Robitussin DM) and decongestants (Actifed or Sudafed) may help relieve cough and congestion. [NOTE: Do not use decongestants if you have high blood pressure.] Finish all antibiotic medicine, even if you are feeling better after only a few days. Follow Up with your doctor or as directed if you dont start to feel better after three days. [NOTE: If you are age 65 or older, or if you have chronic asthma or COPD, we recommend a PNEUMOCOCCAL VACCINATION every five years and a yearly INFLUENZAVACCINATION (FLU-SHOT) every . Ask your doctor about this. If you had an X-ray, a radiologist will review it. You will be notified of any new findings that may affect your care.] Get Prompt Medical Attention if any of the following occur: Fever over 100.4F (38.0C) for more than three days Trouble breathing, wheezing or pain with breathing Coughing up blood or increased amounts of colored sputum Weakness, drowsiness, headache, facial pain, ear pain or a stiff neck Pulmonary Nodule A pulmonary nodule is a finding on a chest x-ray. It is usually found on an x-ray taken for other reasons.It is a single lesion up to about an inch in size, surrounded by normal lung tissue. Most nodules are benign (non-cancerous). However, a nodule could be an early stage of primary lung cancer; or, it may be a sign of cancer that has spread from another part of the body (metastatic). Once a nodule is found on a chest x-ray, further testing is needed to determine if it is benign or outpatient to diagnose your nodule. Comparison of todays x-ray to prior x-rays Chest CT scan Bronchoscopy (a procedure that allows the doctor to see the air passages inside the lung) Needle biopsy Test Results: If your nodule proves to be benign, continued follow up over the next five years is usually advised. If the tests cannot tell if your nodule is benign or malignant, then, surgery may be advised. If your tests show your nodule is definitely malignant, surgery will probably be advised. The best survival rates from lung cancer occur when the primary tumor is small (less than one inch). Follow your doctor's advice regarding the timing of further testing. Prompt treatment gives the best chance for curing lung cancer. Prevention Smoking remains one of the greatest risk factors for lung cancer. If you smoke, it is essential that you quit in order to lower your risk of lung cancer. Talk to your doctor about ways to help you quit. Visit the following links for more information: www.smokefree.gov/pubs/clearing_the_air.pdf www.smokefree.gov www.quitnet.com Home Care: Most patients with a pulmonary nodule will have no symptoms. Therefore, no special home care is required.You may resume your usual activities and diet. Follow Up with your doctor or as advised by our staff. Keep your appointments for further testing. You can get more information about lung cancer from the following: [employer] 010-402-0726 lung.org National Cancer [place] 557-630-1712 www.cancer.gov Return Promptly or contact your doctor if any of the following occur: Fever of 100.4F (38C) or higher, or as directed by your healthcare provider Coughing up blood Chest pain or shortness of breath Unintended weight change How To Quit Smoking Smoking is one of the hardest habits to break. About half of all those who have ever smoked have been able to quit, and most of those (about 70%) who still smoke want to quit. Here are some of the best ways to stop smoking. Keep Trying: It takes most smokers about 8 tries before they are finally able to fully quit. So, the more often you try and fail, the better your chance of quitting the next time! So, don't give up! Go Cold [place]: Most ex-smokers quit cold turkey. Trying to cut back gradually doesn't seem to work as well, perhaps because it continues the smoking habit. Also, it is possible to fool yourself by inhaling more while smoking fewer cigarettes. This results in the same amount of nicotine in your body! Get Support: Support programs can make an important difference, especially for the heavy smoker. These groups offer lectures, methods to change your behavior and peer support. Call the free national Quitline for more information. 023-YDVX-PLT (662-060-9903). Low-cost or free programs are offered by many hospitals, local chapters of the [employer] (298-697-9089) and the [employer] (215-431-8871). Support at home is important too. Non-smokers can help by offering praise and encouragement. If the smoker fails to quit, encourage them to try again! Lxtl-Eqo-Guzlabc Medicines: For those who can't quit on their own, Nicotine Replacement Therapy (NRT) may make quitting much easier. Certain aids such as the nicotine patch, gum and lozenge are available without a prescription. However, it is best to use these under the guidance of your doctor. The skin patch provides a steady supply of nicotine to the body. Nicotine gum and lozenge gives temporary bursts of low levels of nicotine. Both methods take the edge off the craving for cigarettes. WARNING: If you feel symptoms of nicotine overdose, such as nausea, vomiting, dizziness, weakness, or fast heartbeat, stop using these and see your doctor. Prescription Medicines: After evaluating your smoking patterns and prior attempts at quitting, your doctor may offer a prescription medicine such as bupropion (Zyban, Wellbutrin), varenicline (Chantix, Champix), a niocotine inhaler or nasal spray. Each has its unique advantage and side effects which your doctor can review with you. Health Benefits Of Quitting: The benefits of quitting start right away and keep improving the longer you go without smokin minutes: blood pressure and pulse return to normal 8 hours: oxygen levels return to normal 2 days: ability to smell and taste begins to improve as damaged nerves start to regrow 2-3 weeks: circulation and lung function improves 1-9 months: decreased cough, congestion and shortness of breath; less tired 1 year: risk of heart attack decreases by half 5 years: risk of lung cancer decreases by half; risk of stroke becomes the same as a non-smoker For information about how to quit smoking, visit the following links: National Cancer [place] , Clearing the Air, Quit Smoking Today - an online booklet. http://www.smokefree.gov/pubs/clearing_the_air.pdf Smokefree.gov http://smokefree.gov/ QuitNet http://www.quitnet.com/ Prednisone Oral tablet What is this medicine? PREDNISONE (PRED ni sone) is a corticosteroid. It is commonly used to treat inflammation of the skin, joints, lungs, and other organs. Common conditions treated include asthma, allergies, and arthritis. It is also used for other conditions, such as blood disorders and diseases of the adrenal glands. How should I use this medicine? Take this medicine by mouth with a glass of water. Follow the directions on the prescription label. Take this medicine with food. If you are taking this medicine once a day, take it in the morning. Do not take more medicine than you are told to take. Do not suddenly stop taking your medicine because you may develop a severe reaction. Your doctor will tell you how much medicine to take. If your doctor wants you to stop the medicine, the dose may be slowly lowered over time to avoid any side effects. Talk to your woodyard crane operator regarding the use of this medicine in children. Special care may be needed. What side effects may I notice from receiving this medicine? Side effects that you should report to your doctor or health critical care unit nurse as soon as possible: allergic reactions like skin rash, itching or hives, swelling of the face, lips, or tongue changes in emotions or moods changes in vision depressed mood eye pain fever or chills, cough, sore throat, pain or difficulty passing urine increased thirst swelling of ankles, feet Side effects that usually do not require medical attention (report to your doctor or health critical care unit nurse if they continue or are bothersome): confusion, excitement, restlessness headache nausea, vomiting skin problems, acne, thin and shiny skin trouble sleeping weight gain What may interact with this medicine? Do not take this medicine with any of the following medications: metyrapone mifepristone This medicine may also interact with the following medications: aminoglutethimide amphotericin B aspirin and aspirin-like medicines barbiturates certain medicines for diabetes, like glipizide or glyburide cholestyramine cholinesterase inhibitors cyclosporine digoxin diuretics ephedrine female hormones, like estrogens and control pills isoniazid ketoconazole NSAIDS, medicines for pain and inflammation, like ibuprofen or naproxen phenytoin rifampin toxoids vaccines warfarin What if I miss a dose? If you miss a dose, take it as soon as you can. If it is almost time for your next dose, talk to your doctor or health critical care unit nurse. You may need to miss a dose or take an extra dose. Do not take double or extra doses without advice. Where should I keep my medicine? Keep out of the reach of children. Store at room temperature between 15 and 30 degrees C (59 and 86 degrees F). Protect from light. Keep container tightly closed. Throw away any unused medicine after the expiration date. What should I tell my health care provider before I take this medicine? They need to know if you have any of these conditions: Medusa's syndrome diabetes glaucoma heart disease high blood pressure infection (especially a virus infection such as chickenpox, cold sores, or herpes) kidney disease liver disease mental illness myasthenia gravis osteoporosis seizures stomach or intestine problems thyroid disease an unusual or allergic reaction to lactose, prednisone, other medicines, foods, dyes, or preservatives or trying to get breast-feeding What should I watch for while using this medicine? Visit your doctor or health critical care unit nurse for regular checks on your progress. If you are taking this medicine over a prolonged period, carry an identification card with your name and address, the type and dose of your medicine, and your doctor's name and address. This medicine may increase your risk of getting an infection. Tell your doctor or health critical care unit nurse if you are around anyone with measles or chickenpox, or if you develop sores or blisters that do not heal properly. If you are going to have surgery, tell your doctor or health critical care unit nurse that you have taken this medicine within the last twelve months. Ask your doctor or health critical care unit nurse about your diet. You may need to lower the amount of salt you eat. This medicine may affect blood sugar levels. If you have diabetes, check with your doctor or health critical care unit nurse before you change your diet or the dose of your diabetic medicine. You have been given the following additional information: COPD Flare Bronchitis, Antiobiotic Treatment (Adult) Pulmonary Nodule, Solitary Smoking Cessation Prednisone Oral tablet (Electronically signed by Kenneth Mtathews MD 09/23/2016 3:37)
--- NOTE | 2016-09-23 03:37 | ED DISCHARGE INSTRUCTIONS ---
Patient: GUSTAVO OSUNA General Instructions [facility] VisitID: [id number] [place] [address] 56y, M Registration Date/Time: 09/18/2016 Pulmonary nodule right upper lobe and left upper lobe. Acute exacerbation of COPD. INSTRUCTIONS Avoid tobacco smoke. Do not smoke- benefits of smoking cessation discussed (>3 -10 minutes). Seek medical help to quit smoking. Warnings: Further evaluation is necessary. GENERAL WARNINGS: Return or contact your physician immediately if your condition worsens or changes unexpectedly, if not improving as expected, or if other problems arise. Prescription Medications: Prednisone 20 mg: take 3 orally every day for 5 days. Dispense fifteen (15). No refills. Zithromax 250 mg tablets: take 1 orally every day for 4 days. Total course 4 days. No refills. Substitution is permissible. Follow-up: Follow up with your doctor in five days. Call for an appointment. Follow up with a cap coverer as scheduled. Understanding of the discharge instructions verbalized by patient. ADDITIONAL INFORMATION COPD Flare Both emphysema and chronic bronchitis are forms of chronic obstructive pulmonary disease (COPD). It is most often caused by many years of smoking tobacco. Many things can make your lung disease suddenly get worse. These causes include the common cold, pneumonia, acute bronchitis, missing doses of your regular breathing medicines, or being around smoke, dust, or other air pollutants. A COPD flare may last 7 to 14 days. Your doctor may prescribe medicineto relax your airways and prevent wheezing. Your doctor may also prescribe antibiotics if he or she thinks you havea bacterial infection. Prednisone can helpease inflammation in a severe attack. Home care Here are things you can do at home: Drink lots of water or other fluids (at least 10 glasses a day) during an attack. This will loosen lung secretions and make it easier to breathe. If you have heart or kidney disease, check with your doctor before you drink extra amounts of fluids. Take prescribed medicine exactly at the times advised. If you have a hand-held inhaler or aerosol breathing medicine, don't use it more than once every 4 hours, unless your doctor tells you to. If you were givenan antibiotic or prednisone, take all of the medicine even if you are feeling better after a few days. Don't smoke. Avoid being aroundthe smoke of others. If you were given an inhaler, use it exactly as directed. If you need to use it more often than prescribed, your condition may be getting worse. Call your doctor. Follow-up care Follow up with your health care provider.If you are 65 or older or have chronic asthma or COPD, you should get a single dose of the pneumococcal vaccine and aflu shot each year. You may need a second dose of the pneumococcal vaccine if you had the first dose at a younger age. Your health care provider will let you know if you need a second dose. For all other people, the usual dose for the pneumococcal vaccine is 1 or 2 shots. Yourprovider can discuss this with you. When to seek medical care Get prompt medical attention ifany of these occur: Increased wheezing or shortness of breath Need to use your inhalers more often than usual without relief Fever of 100.4F(38C) or higher, or as directed by your health care provider Coughing up lots of dark-colored or bloody sputum (mucus) Chest pain with each breath You do not start to improve within 24 hours Bronchitis (Adult: Abx Tx) BRONCHITIS is an infection of the air passages (bronchial tubes). It often occurs during the common cold. Symptoms include cough with mucus (phlegm) and low-grade fever. Bronchitis usually lasts 7-14 days. Mild cases can be treated with simple home remedies. More severe infection is treated with an antibiotic. Home Care: If symptoms are severe, rest at home for the first 2-3 days. When you resume activity, don't let yourself get too tired. Do not smoke. Avoid being exposed to the smoke of others. You may use acetaminophen (Tylenol) or ibuprofen (Motrin, Advil) to control fever or pain, unless another medicine was prescribed for this. [NOTE: If you have chronic liver or kidney disease or ever had a stomach ulcer or GI bleeding, talk with your doctor before using these medicines.] Your appetite may be poor, so a light diet is fine. Avoid dehydration by drinking 6-8 glasses of fluids per day (water, soft, drinks, juices, tea, soup, etc.). Extra fluids will help loosen secretions in the lungs. Phgg-xvi-ytfaueu cough medicines that containdextromethorphan(such as Robitussin DM) and decongestants (Actifed or Sudafed) may help relieve cough and congestion. [NOTE: Do not use decongestants if you have high blood pressure.] Finish all antibiotic medicine, even if you are feeling better after only a few days. Follow Up with your doctor or as directed if you dont start to feel better after three days. [NOTE: If you are age 65 or older, or if you have chronic asthma or COPD, we recommend a PNEUMOCOCCAL VACCINATION every five years and a yearly INFLUENZAVACCINATION (FLU-SHOT) every . Ask your doctor about this. If you had an X-ray, a radiologist will review it. You will be notified of any new findings that may affect your care.] Get Prompt Medical Attention if any of the following occur: Fever over 100.4F (38.0C) for more than three days Trouble breathing, wheezing or pain with breathing Coughing up blood or increased amounts of colored sputum Weakness, drowsiness, headache, facial pain, ear pain or a stiff neck Pulmonary Nodule A pulmonary nodule is a finding on a chest x-ray. It is usually found on an x-ray taken for other reasons.It is a single lesion up to about an inch in size, surrounded by normal lung tissue. Most nodules are benign (non-cancerous). However, a nodule could be an early stage of primary lung cancer; or, it may be a sign of cancer that has spread from another part of the body (metastatic). Once a nodule is found on a chest x-ray, further testing is needed to determine if it is benign or outpatient to diagnose your nodule. Comparison of todays x-ray to prior x-rays Chest CT scan Bronchoscopy (a procedure that allows the doctor to see the air passages inside the lung) Needle biopsy Test Results: If your nodule proves to be benign, continued follow up over the next five years is usually advised. If the tests cannot tell if your nodule is benign or malignant, then, surgery may be advised. If your tests show your nodule is definitely malignant, surgery will probably be advised. The best survival rates from lung cancer occur when the primary tumor is small (less than one inch). Follow your doctor's advice regarding the timing of further testing. Prompt treatment gives the best chance for curing lung cancer. Prevention Smoking remains one of the greatest risk factors for lung cancer. If you smoke, it is essential that you quit in order to lower your risk of lung cancer. Talk to your doctor about ways to help you quit. Visit the following links for more information: www.smokefree.gov/pubs/clearing_the_air.pdf www.smokefree.gov www.quitnet.com Home Care: Most patients with a pulmonary nodule will have no symptoms. Therefore, no special home care is required.You may resume your usual activities and diet. Follow Up with your doctor or as advised by our staff. Keep your appointments for further testing. You can get more information about lung cancer from the following: [place] [employer] [phone] lung.org National Cancer [place] [phone] www.cancer.gov Return Promptly or contact your doctor if any of the following occur: Fever of 100.4F (38C) or higher, or as directed by your healthcare provider Coughing up blood Chest pain or shortness of breath Unintended weight change How To Quit Smoking Smoking is one of the hardest habits to break. About half of all those who have ever smoked have been able to quit, and most of those (about 70%) who still smoke want to quit. Here are some of the best ways to stop smoking. Keep Trying: It takes most smokers about 8 tries before they are finally able to fully quit. So, the more often you try and fail, the better your chance of quitting the next time! So, don't give up! Go Cold Wheeler: Most ex-smokers quit cold turkey. Trying to cut back gradually doesn't seem to work as well, perhaps because it continues the smoking habit. Also, it is possible to fool yourself by inhaling more while smoking fewer cigarettes. This results in the same amount of nicotine in your body! Get Support: Support programs can make an important difference, especially for the heavy smoker. These groups offer lectures, methods to change your behavior and peer support. Call the free national Quitline for more information. 586-EVBT-PSZ (392-860-1795). Low-cost or free programs are offered by many hospitals, local chapters of the [place] [employer] (145-648-2905) and the [employer] [employer] (377-218-3248). Support at home is important too. Non-smokers can help by offering praise and encouragement. If the smoker fails to quit, encourage them to try again! Wnot-Vso-Sdmjnnv Medicines: For those who can't quit on their own, Nicotine Replacement Therapy (NRT) may make quitting much easier. Certain aids such as the nicotine patch, gum and lozenge are available without a prescription. However, it is best to use these under the guidance of your doctor. The skin patch provides a steady supply of nicotine to the body. Nicotine gum and lozenge gives temporary bursts of low levels of nicotine. Both methods take the edge off the craving for cigarettes. WARNING: If you feel symptoms of nicotine overdose, such as nausea, vomiting, dizziness, weakness, or fast heartbeat, stop using these and see your doctor. Prescription Medicines: After evaluating your smoking patterns and prior attempts at quitting, your doctor may offer a prescription medicine such as bupropion (Zyban, Wellbutrin), varenicline (Chantix, Champix), a niocotine inhaler or nasal spray. Each has its unique advantage and side effects which your doctor can review with you. Health Benefits Of Quitting: The benefits of quitting start right away and keep improving the longer you go without smokin minutes: blood pressure and pulse return to normal 8 hours: oxygen levels return to normal 2 days: ability to smell and taste begins to improve as damaged nerves start to regrow 2-3 weeks: circulation and lung function improves 1-9 months: decreased cough, congestion and shortness of breath; less tired 1 year: risk of heart attack decreases by half 5 years: risk of lung cancer decreases by half; risk of stroke becomes the same as a non-smoker For information about how to quit smoking, visit the following links: National Cancer [place] , Clearing the Air, Quit Smoking Today - an online booklet. http://www.smokefree.gov/pubs/clearing_the_air.pdf Smokefree.gov http://smokefree.gov/ QuitNet http://www.quitnet.com/ Prednisone Oral tablet What is this medicine? PREDNISONE (PRED ni sone) is a corticosteroid. It is commonly used to treat inflammation of the skin, joints, lungs, and other organs. Common conditions treated include asthma, allergies, and arthritis. It is also used for other conditions, such as blood disorders and diseases of the adrenal glands. How should I use this medicine? Take this medicine by mouth with a glass of water. Follow the directions on the prescription label. Take this medicine with food. If you are taking this medicine once a day, take it in the morning. Do not take more medicine than you are told to take. Do not suddenly stop taking your medicine because you may develop a severe reaction. Your doctor will tell you how much medicine to take. If your doctor wants you to stop the medicine, the dose may be slowly lowered over time to avoid any side effects. Talk to your outside sales account representative regarding the use of this medicine in children. Special care may be needed. What side effects may I notice from receiving this medicine? Side effects that you should report to your doctor or health patient care as soon as possible: allergic reactions like skin rash, itching or hives, swelling of the face, lips, or tongue changes in emotions or moods changes in vision depressed mood eye pain fever or chills, cough, sore throat, pain or difficulty passing urine increased thirst swelling of ankles, feet Side effects that usually do not require medical attention (report to your doctor or health patient care if they continue or are bothersome): confusion, excitement, restlessness headache nausea, vomiting skin problems, acne, thin and shiny skin trouble sleeping weight gain What may interact with this medicine? Do not take this medicine with any of the following medications: metyrapone mifepristone This medicine may also interact with the following medications: aminoglutethimide amphotericin B aspirin and aspirin-like medicines barbiturates certain medicines for diabetes, like glipizide or glyburide cholestyramine cholinesterase inhibitors cyclosporine digoxin diuretics ephedrine female hormones, like estrogens and control pills isoniazid ketoconazole NSAIDS, medicines for pain and inflammation, like ibuprofen or naproxen phenytoin rifampin toxoids vaccines warfarin What if I miss a dose? If you miss a dose, take it as soon as you can. If it is almost time for your next dose, talk to your doctor or health patient care. You may need to miss a dose or take an extra dose. Do not take double or extra doses without advice. Where should I keep my medicine? Keep out of the reach of children. Store at room temperature between 15 and 30 degrees C (59 and 86 degrees F). Protect from light. Keep container tightly closed. Throw away any unused medicine after the expiration date. What should I tell my health care provider before I take this medicine? They need to know if you have any of these conditions: [place]'s syndrome diabetes glaucoma heart disease high blood pressure infection (especially a virus infection such as chickenpox, cold sores, or herpes) kidney disease liver disease mental illness myasthenia gravis osteoporosis seizures stomach or intestine problems thyroid disease an unusual or allergic reaction to lactose, prednisone, other medicines, foods, dyes, or preservatives or trying to get breast-feeding What should I watch for while using this medicine? Visit your doctor or health patient care for regular checks on your progress. If you are taking this medicine over a prolonged period, carry an identification card with your name and address, the type and dose of your medicine, and your doctor's name and address. This medicine may increase your risk of getting an infection. Tell your doctor or health patient care if you are around anyone with measles or chickenpox, or if you develop sores or blisters that do not heal properly. If you are going to have surgery, tell your doctor or health patient care that you have taken this medicine within the last twelve months. Ask your doctor or health patient care about your diet. You may need to lower the amount of salt you eat. This medicine may affect blood sugar levels. If you have diabetes, check with your doctor or health patient care before you change your diet or the dose of your diabetic medicine. You have been given the following additional information: COPD Flare Bronchitis, Antiobiotic Treatment (Adult) Pulmonary Nodule, Solitary Smoking Cessation Prednisone Oral tablet (Electronically signed by Kenneth Matthews MD 09/23/2016 3:37)
== END 2016-09-18 21:29 | disposition home or self-care (01) ==
LOC: ED SRH 17:37
DX: J44.1 Chronic obstructive pulmonary disease with (acute) exacerbation (principal); R91.1 Solitary pulmonary nodule; F17.210 Nicotine dependence, cigarettes, uncomplicated; Z88.0 Allergy status to penicillin
CPT/HCPCS: 90100; 90616; 91320; 91400; 92031; 92610; 92720; 94001; 94060; 95059

== ENCOUNTER 2016-10-02 21:32 | Emergency (ER) | payer OTHER ==
--- NOTE | 2016-10-03 | DIAGNOSTIC IMAGING REPORT ---
PROCEDURE: CTA THORAX WITH CONTRAST INDICATION: Short of breath. Status post left lung biopsy with pneumothorax and chest tube. TECHNIQUE: 92 of Isovue 370 was injected intravenously and axial images were obtained of the entire thorax with 3D sagittal and coronal MIP reconstructions. COMPARISON: Compared to chest x-ray earlier today (see 10/02/2016) and 09/18/2016. FINDINGS: COPD and pulmonary emphysema. There is a 1.5 cm nodular density in the left lateral lung with mild surrounding parenchymal changes, and minimal subpleural emphysema. There is moderate subcutaneous emphysema of the left anterior upper thorax. There is no evidence of pneumothorax. There are three small nodular densities in the right upper lung (0.5 - 1.2 cm). Pulmonary vessels are normal and there is no evidence of pulmonary embolus. Heart and mediastinum are normal. There are mild degenerative changes of the thoracic spine. IMPRESSION: 1. Status post left lung biopsy with a small amount of subpleural emphysema No evidence of pneumothorax. 2. Small to moderate left upper lung subcutaneous emphysema (postbiopsy). 3. There is a 1.5 cm left lateral mid lung parenchymal nodule with three small right upper lung parenchymal nodule. 4. Findings are suspicious for lung neoplasm, although metastatic disease or indolent infection might also be considered. 5. Chronic obstructive pulmonary disease. 6. Otherwise negative CT pulmonary arteriogram. No evidence of pulmonary embolus. 7. Findings discussed with Dr. [facility]. All CT scans at this facility use dose modulation, iterative reconstruction, and/or weight-based dosing when appropriate to reduce radiation dose to as low as reasonably achievable.
--- NOTE | 2016-10-03 00:19 | DIAGNOSTIC IMAGING REPORT ---
PROCEDURE: XR CHEST 1 VIEW INDICATION: Status post recent left lung biopsy with chest tube. TECHNIQUE: Portable AP view (2150 hours). COMPARISON: Compared to chest x-ray on 09/18/2016. FINDINGS: Allowing for overlying wires and electrodes, findings suggest a 1.2 cm nodule in the left lateral mid lung. In addition, there is a 1.5 cm nodular density right upper lung. Pulmonary hyperexpansion and chronic obstructive pulmonary disease. No evidence of pneumothorax. Heart and mediastinum are normal. Thorax is normal. IMPRESSION: 1. There is a 1.2 cm nodule in the left lateral mid lung. 2. There is a 1.5 cm nodule in the right upper lung. 3. Findings suspicious for neoplasm or atypical infection. 4. No evidence of pneumothorax. 5. Chronic obstructive pulmonary disease. .
--- NOTE | 2016-10-03 00:57 | ED CLINICAL REPORT ---
Clinical Report - Physicians/Mid Levels [facility] [address] [place] [address] 10/02/2016 21:33 Patient: GUSTAVO OSUNA Arrived- By ambulance. Historian- patient. HISTORY OF PRESENT ILLNESS Chief Complaint: DYSPNEA. This started today and is still present (styaing the same). It was abrupt in onset and has been constant but is not gone now. The dyspnea is described as moderate and is worsened by exertion and is improved by rest. The patient has had a cough and wheezing. No sputum production, foot swelling, anxiety, dizziness or tingling. No numbness or palpitations. (patient with history of recent biopsy to the left lung for nodule. Patient ports that he was hospitalized because they "dropped his lung." The patient reports that he was told about the hospital immediately for any signs of shortness of breath. Patient reports no other concerns at this time. Patient reports similar pain to the biopsy sitein the left anterior chest wall.). Similar symptoms previously: None. Recent medical care: The patient was seen recently and hospitalized. REVIEW OF SYSTEMS No headache. All systems otherwise negative, except as recorded above. PAST HISTORY See nurses notes. Medications: Vitamin c Oral daily. Bee Pollen Oral. MSM Oral daily . Gabapentin Oral (Tablet 600 mg), daily. Allergies: Penicillin.(Anaphylaxis). SOCIAL HISTORY Smoker- current status unknown. No alcohol use or drug use. No recent travel. Is a local resident. ADDITIONAL NOTES The nursing notes have been reviewed. PHYSICAL EXAM Vital Signs: 10/02/2016 21:38 BP: 145/88. HR: 95. RR: 20. O2 saturation: 99%. Temp: 98.1 F. Blood pressure normal. Oxygen saturation normal. Appearance: Alert. No acute distress. Eyes: Pupils equal, round and reactive to light. Eyes normal inspection. ENT: Ears normal. Nose normal. Pharynx normal. Uvula midline. Neck: Normal inspection. No jugular venous distention. Neck supple. No meningeal signs or JVD. CVS: Normal heart rate and rhythm. Heart sounds normal. Pulses normal. Respiratory: No respiratory distress. Chest wall tenderness (appropriate to left upper anterior chest wallwith well-healing surgical wound that is less than 0.5 cm and regular incision site consistent withpigtail catheter chest tube site). Breath sounds normal. No wheezes, stridor, rales or rhonchi. Abdomen: Soft and nontender. No organomegaly. Back: Normal inspection. Skin: Skin warm and dry. Normal skin color. No rash. Normal skin turgor. Extremities: Extremities exhibit normal ROM. No lower extremity edema. LABS, X-RAYS, AND EKG EKG: No acute process. No acute ischemia. Normal EKG. Normal sinus rhythm. Rate: 88. Normal P waves. Normal DIANNA. Normal QRS complex. Normal axis. Normal ST and T waves, QT and QTc. The study has been interpreted contemporaneously by me. The study has been independently viewed by me. The EKG appears to be a good tracing. Chest X-ray: No acute disease. Normal lung markings present. Normal heart size. No infiltrate. No fracture. No bony lesion present. (hyperinflated lungs. no pneumothorax. no acute change from prior.). Views: PA. Technique: good. The X-rays were independently viewed by me and interpreted contemporaneously by me. Chest CT: (signs of prior biopsy to the left lung. No signs of pulmonary embolus.). Chest CT performed with contrast. The study was independently viewed by me and interpreted by the radiologist. The study was discussed with the radiologist (Via PACS and phone). Laboratory Tests: CBC w Diff: (NBA: 10/02/2016 21:50) ( MsgRcvd 10/02/2016 22:00) Final results Test Result Flag Units (Reference) WHITE BLOOD COUNT 10.9 K/uL (4.5-11.5) RED BLOOD COUNT 4.75 M/uL (4.50-5.90) HEMOGLOBIN 13.6 gm/dL (13.5-17.5) HEMATOCRIT 42.2 % (41.0-53.0) MEAN CELL VOLUME 89 fL (80-100) MEAN CORPUSCULAR HGB 29 pg (26-34) MEAN CORPUSCULAR HGB CONC 32 g/dL (31-37) RED CELL DISTRIBUTION WIDTH 15.1 H % (11.6-14.8) PLATELET COUNT 224 K/uL (150-400) NEUTROPHIL % 65.2 % (50-75) LYMPH % 25.9 % (25-40) MONO % 6.2 % (3-14) EOSINOPHIL % 2.2 % (0-4) BASOPHIL % 0.5 % (0-2) PT with INR: (NBA: 10/02/2016 21:50) ( IagRcvd 10/02/2016 22:10) Final results Test Result Flag Units (Reference) INR 0.9 (0.8-1.2) Low Intensity Therapy: INR 1.5-2.0 PT range 18.5-23.1Mod.Intensity Therapy: INR 2.0-3.0 PT range 23.1-31.5High Intensity Therapy: INR 2.5-3.5 PT range 27.4-35.5High Intensity Therapy 2: INR 3.0-4.0 PT range 31.5-39.3 APTT 29 SECONDS (24-34) CMP: (NBA: 10/02/2016 21:50) ( IagRcvd 10/02/2016 22:16) Final results Test Result Flag Units (Reference) GLUCOSE 104 mg/dL (70-110) BUN 15 mg/dL (7-18) CREATININE 0.7 mg/dL (0.6-1.3) Estimated GFR >60 mL/min Estimated GFR- >60 mL/min Note: Persistent reduction over 3 months in eGFR<60 mL/min/1.73 m2 defines CKD. Patients with eGFR values>=60 mL/min/1.73 m2 may also have CKD if evidence ofpersistent proteinuria. Additional information may be foundat [email or web address].org. SODIUM 141 mmol/L (136-145) POTASSIUM 4.3 mmol/L (3.5-5.1) CHLORIDE 103 mmol/L (98-107) CARBON DIOXIDE 33 H mmol/L (21-32) CALCIUM 9.3 mg/dL (8.5-10.1) TOTAL PROTEIN 7.8 g/dL (6.4-8.2) ALBUMIN 3.8 g/dL (3.3-5.0) BILIRUBIN, TOTAL 0.3 mg/dL (0.0-1.0) ALKALINE PHOSPHATASE 45 L U/L (46-116) AST (SGOT) 24 U/L (15-37) ALT (SGPT) 34 U/L (12-78) TROPONIN I <0.05 ng/mL (0.00-1.5) TROPONIN REFERENCE RANGE:<0.1 NEGATIVE0.1-1.5 INDETERMINANT>1.5 POSITIVE . PROGRESS AND PROCEDURES Course of Care: the patient is a pleasant 56-year-old male presenting for evaluation of shortness of breath. Patient had recent procedure for lung biopsy. Medical records were obtained from her facility. They have interviewed. 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 The patient will be placed in isolation. Workup for likely pneumothorax will be ordered as the patient has history of COPD and had a procedure recently as well as history of recent pneumothorax. We'll also order EKG and troponin 4 possible acute myocardial infarction however this is a much less likely diagnosis. The patient's workup was remarkable for the abdomen is noted above. Patient did not have any signs of pneumonia or pneumothorax on chest x-ray. Patient with possible DVT given his past history as well as recent procedure. CT pulmonary embolus and will be ordered. We will also be able to investigated the biopsy area and site with a CT scan in greater detail than with a plain film of the chest. Patient is agreeable to the treatment plan. Patient continues to be in isolation. Patient reports improvement with his symptoms with his home nebulizer treatments. Patient's CT scan does not show any acute abnormalities. Had discussion withiinfectious disease doctor in regards to the patient's management for the acid-fast bacilli. The infectious disease doctor states that he will be able to obtain results of the acid-fast bacilli study in the morning and to contact him later however patient will need to be in isolation and admitted to prevent further possible spread of tuberculosis. I've spoken with our hospitalist and aggressive the patient's condition here in the emergency department and need for admission. Do not feel it would be smith to have the patient follow-up as an outpatient given the positive acid-fast bacilli on his lung biopsy. Patient with possible active tuberculosis however patient does not have signs of active tuberculosis on chest x-ray and only has the nodules at this time patient still a infectious hazard in regards to his tuberculosis. Initially, hospitalist accepted patient however on second thought, recommended patient obtain infectious disease [facility] of the likely mycoplasma tuberculosisunfortunately, [facility] did not have any beds available when we had contacted him earlier. The hospitalist also attempted to contact the hospital for avaibeds and there was a possibility of a bed available. We will await their response. The patient is currently not being accepted by the hospitalist. We will attempt to transfer patient. Do not fill patient needs to be discharged at this time. Patient will need further management and monitoring here in the emergency department until an adequate disposition has been decided upon and available. We're able to contact the infectious disease doctor at approximately 8:00 this morning. The infectious disease doctor Dr. Rust will contact us as soon as he is able to pull up the results on the patient. the infectious disease doctor had reviewed the patient's lung biopsy results and recommended that the patient be admitted to the hospital. However, did not feel that antituberculin medications needed at this time. Because of the patient's recent biopsy over [facility] in [place] as well as his privileges over [facility] in [place], recommended that the patient be transferred there. I've spoken with the washhouse hand who was extremely helpful in trying to locate a isolation bed at [facility]. Once a bed is available, they will be able to accept the patient and will keep the bed available. Did state that this may take several hours to occurand this was at approximately 9:00 this morning. Had informed the patient of the occurrences throughout this entire process. Patient has been Updated. We had the patient transferred over to a more comfortable bed as the emergency department bed mattresses are rather thin and uncomfortable. It also offered patient food and drink while here in the emergency department. Patient is agreeable to staying here in the ED. Patient will remain in isolation contact and respiratory droplet precautions for possible micro-plasm tuberculin-type. Patient is agreeable to treatment and plan. Patient continues to have improved symptoms of his shortness of breath while here in the emergency department. Patient is currently awaiting in bedin no acute distress. We are waiting placement at this time. transportation and bed available over [facility]. Patient subsequent transferred without incidence. Critical care performed (60 minutes). Time is exclusive of separately billable procedures. Time includes: direct patient care, patient reassessment, coordination of patient care, interpretation of data (laboratory data and chest xrays), review of patient's medical records, medical consultation, family consultation regarding treatment decisions and documentation of patient care. Disposition: Transferred to [facility]. CLINICAL IMPRESSION acute acid fast bacilli acute respiratory distress history of COPD. (Electronically signed by Carlitos Grace Dr. 10/08/2016 5:04)
--- NOTE | 2016-10-03 00:57 | ED NURSING NOTES ---
Clinical Report - Nurses [facility] [address] [place] [address] 10/02/2016 21:33 Patient: GUSTAVO OSUNA TRIAGE Triage time 21:37. Acuity: LEVEL 3. Chief Complaint: SHORTNESS OF BREATH and CHEST PAIN. Alert. No acute distress. ( Pt. states he had a lung biopsy on wed at [facility] and they "collapsed my left lung." He was advise if he had any SOB or pain to go to the ED.). SEPSIS SCREEN: Sepsis Screen. Negative (no infection suspected/documented). JOS COMA SCORE: Jos Coma Scale: 15- eyes open spontaneously (4); best verbal response- oriented x 4 (5); best motor response- obeys commands (6). --21:50 Ely Tobias R.N. 21:38 10/02/16. BP: 145/88. HR: 95. RR: 20. O2 saturation: 99%. Temp: 98.1 F. Pain level now 310. --21:50 Ely Tobias R.N. Weight: 63.5 kg stated. Height/Length: 74 inches Per Patient. BMI: 18. --21:38 Ely Tobias R.N. Medications Gabapentin Oral (Tablet 600 mg), daily. --21:40 Ely Tobias R.N. MSM Oral daily . --21:40 Ely Tobias R.N. Bee Pollen Oral. --21:41 Ely Tobias R.N. Vitamin c Oral daily. --21:41 Ely Tobias R.N. Allergies Penicillin.(Anaphylaxis) --21:41 Ely Tobias R.N. The following entry was struck and corrected by Ely Tobias R.N., 21:41 (10/02/16) Reason for correction - other(correction). <<STRICKEN ENTRY-- Penicillin. --21:41 Ely Tobias R.N. --END STRIKE>>. History Arrived by EMS. Historian: patient. Unaccompanied. Primary physician (Dr. Martinez). This started today. Onset. (30 minutes ago). Treatment CIVIL PROJECT ENGINEER: None. PAST MEDICAL HX: Immunizations: up-to-date. SOCIAL HX: Smoker- current status unknown (stopped Sep 14. Smoked 38 years). Occasional alcohol use. No drug use. No infectious disease exposure. ABUSE ASSESSMENT: No report of abuse. SELF HARM ASSESSMENT: A self harm assessment was performed. The patient answered "no" to the question "Do you have thoughts of harming or killing yourself?" and "Have you recently had thoughts about harming or killing others?". NUTRITIONAL RISK ASSESSMENT: The nutritional risk assessment revealed no deficiencies. FUNCTIONAL ASSESSMENT: Functional assessment: no impairments noted. LEARNING NEEDS ASSESSMENT: The learning needs assessment revealed no barriers. --21:50 Ely Tobias R.N. PROBLEMS: Pulmonary Nodule. Back Pain. COPD - Chronic Obstructive Pulmonary Disease. --21:41 Ely Tobias R.N. Pneumothorax. --21:42 Ely Tobias R.N. ADDITIONAL SURGERIES: Chest tube. --21:42 Ely Tobias R.N. Tonsillectomy. --21:49 Ely Tobias R.N. Interventions ID band on patient. Transported via stretcher. --21:50 Ely Tobias R.N. PHYSICAL ASSESSMENT To room via stretcher. GENERAL / NEURO / PSYCH: Alert. Appears in no acute distress. HEENT: Mucous membranes are pink. RESPIRATORY: Mild respiratory distress. CVS: Normal sinus rhythm noted. Cardiac rhythm: normal sinus rhythm; (97). Capillary refill less than 2 seconds. SKIN: Skin is warm and dry. --21:50 Ely Tobias R.N. NURSING PROGRESS NOTES biomass power plant manager, pulse oximeter and NIBP monitor placed on patient; technical writer- Lead II; monitor alarms on. Patient gowned. Head of bed elevated. Two patient identifiers checked. Call light placed in reach. Side rails up x 2. Bed placed in lowest position. Brakes of bed on. Patient ready for evaluation- chart flagged. --21:51 Ely Tobias R.N. 21:51 10/02/2016 Site #1 started via IV in the right forearm with an 18g angiocath, with aseptic technique and good blood return; one attempt. Blood drawn: rainbow set. Labeled in the presence of the patient and sent to the lab. Saline lock flushed with 10 mL saline (Accessed by ARINA Mckeon). --21:51 Ely Tobias R.N. EKG was performed by a tech and shown to the ED physician. --22:33 Yarely, Shay Care transferred and report given (to Jose Angel Barrett RN). --00:03 Ely Tobias R.N. 00:37 10/03/2016 Started bag #1 1000 mL IV Fluids IV NS (Saline); at 1000 mL/hr over 1 hour(s) via site #1 --00:37 Jose Angel Hernandez R.N. 00:40 Patient updated about wait. --00:48 Jose Angel Hernandez R.N. 01:09 10/03/2016 IV Fluids IV NS Discontinued: bag #1 infused. Total amount infused: 1000 mL. IV patency established. IV site checked: no pain, redness, or swelling. IV flushed thoroughly. --01:09 Jose Angel Hernandez R.N. 01:16 Patient moved to room 15 placed in isolation. --01:18 Jose Angel Hernandez R.N. 01:18 10/03/16. BP: 133/85. HR: 80. RR: 16. O2 saturation: 100% on nasal cannula at 2 liters/minute. Pain level now: 0/10. --04:56 Jose Angel Hernandez R.N. The patient is calm and resting quietly. --04:56 Jose Angel Hernandez R.N. 02:13. The patient is sleeping. RESPIRATORY: No respiratory distress. SKIN: Skin is warm and dry. Skin color within normal limits. --04:57 Jose Angel Hernandez R.N. 05:01 10/03/16. HR: 88. RR: 14. O2 saturation: 96% on nasal cannula at 2 liters/minute. Pain level now: 0/10. --05:01 Jose Angel Hernandez R.N. The patient is calm and resting quietly. RESPIRATORY: No respiratory distress. SKIN: Skin is warm and dry. Skin color within normal limits. --05:01 Jose Angel Hernandez R.N. 03:28 Patient asked what prevents him from just walking out, advised pt that we would have to have sign out AMA, patient asked to speak to the DrJose Daniel. Dr. Grace advised. The patient is calm and resting quietly. RESPIRATORY: No respiratory distress. SKIN: Skin is warm and dry. Skin color within normal limits. --06:22 Jose Angel Hernandez R.N. 04:21 Waffle matress placed on pt's bed - pt asked to have it removed stated it is to lumpy. --06:23 Jose Angel Hernandez R.N. 04:30 cold rolling supervisor called asked to have hospital bed brought to the ED. --06:24 Jose Angel Hernandez R.N. 05:13 Patient's room arranged for new bed to fit in room. --06:25 Jose Angel Hernandez R.N. 05:22 hospital bed placed in pt's room, assisted pt move into new bed. --06:25 Jose Angel Hernandez R.N. 04:25 10/03/16. BP: 137/76. HR: 82. RR: 14. O2 saturation: 98% on nasal cannula at 2 liters/minute. --06:27 Jose Angel Hernandez R.N. 05:35 10/03/16. BP: 123/85. HR: 79. RR: 13. O2 saturation: 99% on nasal cannula at 2 liters/minute. --06:28 Jose Angel Hernandez R.N. 06:10 10/03/2016 Duoneb (Ipratropium-Albuterol) Neb TX 1 unit dose given. Given by the nurse. Allergies verified and confirmed 5 rights. --06:29 Jose Angel Hernandez R.N. 06:19. The patient is calm and resting quietly. RESPIRATORY: No respiratory distress. SKIN: Skin is warm and dry. Skin color within normal limits. --06:30 Jose Angel Hernandez R.N. 07:10. Care transferred and report received (from Jose Angel Barrett RN). --07:20 Kaden Stoll R.N. 07:39 10/03/16. Cardiac rhythm: normal sinus rhythm. ( Pt is in negative airflow isolation for possible TB (positive acid fast bacillus).). --07:39 Kaden Stoll R.N. 07:30 10/03/16. HR: 80. RR: 16. O2 saturation: 93% on nasal cannula at 2 liters/minute. Additional comments: sleeping. --07:39 Kaden Stoll R.N. Cardiac rhythm: normal sinus rhythm. --09:08 Kaden Stoll R.N. 09:08 10/03/16. HR: 81. RR: 20. O2 saturation: 95% on nasal cannula at 2 liters/minute. Pain level now: 0/10. Additional comments: asleep. --09:08 Kaden Stoll R.N. late entry -09:40. ( Breakfast tray was ordered.). --10:05 Kaden Stoll R.N. 10:20. Reassurance given. Reassessment after oxygen administered. He reports no complaints. ( SOB). Bed placed in lowest position. Brakes of bed on. ( Bedside commode provided. informed pt of the plan to transfer him to [facility] when a bed is ready.). --10:32 Kaden Stoll R.N. 10:55 10/03/16. Head of bed elevated. Reassurance given. The patient reports no complaints and he is calm and resting quietly. Call light placed in reach. Bed placed in lowest position. Brakes of bed on. ( Meal tray provided. updated Pt again in the transfer plan and progress towards transfer.). --10:56 Kaden Stoll R.N. 10:50 10/03/16. BP: 117/81. HR: 69. RR: 20. O2 saturation: 97% on room air. Temp: 97.9 F (oral). Pain level now: 0/10. --10:56 Kaden Stoll R.N. 12:30 10/03/16. HR: 80. RR: 20. O2 saturation: 95% on room air. Pain level now: 0/10. --13:11 Kaden Stoll R.N. DISPOSITION / DISCHARGE 01:20. Patient's personal items include, Other belongings, pt has 02 bottle; items were placed in belongings bag and transported with the patient. He did not have glasses, contacts, dentures or a hearing aid. --01:20 Jose Angel Hernandez R.N. Report was given via a phone call. Report included patient's care, treatment, medications, reviewed medication reconcilliation, and condition (including any recent changes or anticipated changes). All questions were answered. Report was acknowledged. (Frances SANTAsoftware systems architect). --03:31 Jose Angel Hernandez R.N. 03:34 10/03/16. BP: 141/98. HR: 99. RR: 18. O2 saturation: 99%. Pain level now: 0/10. --03:37 Jose Angel Hernandez R.N. 13:40 10/03/16. Departure time: 1340. Condition at departure: unchanged and stable. Transferred. Summary of care provided to EMS ([facility]). Transported via ambulance by EMS ([facility]). --13:41 Kaden Stoll R.N. 13:38 10/03/16. BP: 132/82. HR: 80. RR: 20. O2 saturation: 95% on room air. Temp: 97.9 F (oral). Pain level now: 0/10. --13:41 Kaden Stoll R.N. late entry -13:30. Report was given to an EMT/P in person. Report included patient's care, treatment, medications, reviewed medication reconcilliation, and condition (including any recent changes or anticipated changes). All questions were answered. Report was acknowledged. --13:45 Kaden Stoll R.N. 13:46 10/03/16. Report was given to a nurse via a phone call. Report included patient's care, treatment, medications, reviewed medication reconcilliation, and condition (including any recent changes or anticipated changes). All questions were answered. Report was acknowledged. (ARINA Chan @ [facility] (room [id number])). --13:46 Kaden Stoll R.N. Locked/Released at 10/04/2016 7:34 by Kaden Stoll R.N.
--- NOTE | 2016-10-03 00:57 | ED ORDER SUMMARY ---
..... Patient: GUSTAVO OSUNA OrderSheet [facility] VisitID: [id number] [place] [address] 56y, M Registration Date/Time: 10/02/2016 ORDER SHEET Weight: 63.5 kg (stated) Allergies: Penicillin GENERAL ORDERS: Chest 1V (recent lung biopsy) Urgent (21:46 10/02/2016 Rasheed Chavis) (Ack 21:49 CHagerty ER Operating Table Assembler) (22:02 SReitz R.N.) Ward Maid (Continuous) (Respiratory Distress) (21:48 10/02/2016 Rasheed Chavis) (21:53 SReirving R.N.) CBC w Diff Urgent (21:48 10/02/2016 Rasheed Chavis) (Ack 21:49 CHagerty ER Operating Table Assembler) (22:02 SReitz R.N.) CMP Urgent (21:48 10/02/2016 Rasheed Chavis) (Ack 21:49 CHagerty ER Operating Table Assembler) (22:02 SReitz R.N.) PT with INR Urgent (21:48 10/02/2016 Rasheed Chavis) (Ack 21:49 CHagerty ER Operating Table Assembler) (22:02 Gloria R.N.) PTT Urgent (21:48 10/02/2016 Rasheed Chavis) (Ack 21:49 CHagerty ER Operating Table Assembler) (22:02 SReitz R.N.) Troponin-I Urgent (21:48 10/02/2016 Rasheed Chavis) (Ack 21:49 CHagerty ER Operating Table Assembler) (22:02 SReitz R.N.) Pulse oximeter (21:48 10/02/2016 Rasheed Chavis) (21:53 SReitz R.N.) EKG - ER Stat (21:48 10/02/2016 Rasheed Chavis) (Ack 21:49 CHagmartita ER Operating Table Assembler) (21:53 SReitz R.N.) Oxygen (2 L/min) (NC) (21:48 10/02/2016 Rasheed Chavis) (21:53 Gloria R.N.) CTA Thorax w Cont (No) (N/A) Urgent (22:36 10/02/2016 Rasheed Chavis) (Ack 22:39 CHagmartita ER Operating Table Assembler) (23:19 Giacomoalmaz) - (consult infectious disease at [facility]) (23:58 10/02/2016 Rasheed Chavis) (Ack 0:12 CHagerty ER Operating Table Assembler) (1:08 JQuivey R.N.) MEDICATION ORDERS: DuoNeb Neb Tx 1 unit dose (NOW) (06:07 10/03/2016 JQuivey R.N. verbal order read back to Rasheed Chavis) (Ack 6:08 JQuivey R.N.) (6:29 JQuivey R.N.) IV FLUIDS: IV NS : initial bolus 1000 mL (1000 mL/hr), then none - for X1 (NOW) (21:47 10/02/2016 Rasheed Chavis) (Ack 21:53 SReitz R.N.) (0:37 JQuivey R.N.) ORDER SHEET NOTES: [Electronically signed by Kaden Stoll R.N. (07:34 10/04/2016)] [Electronically signed by Carlitos Grace Dr. (05:04 10/08/2016)] [Electronically locked/signed by Kaden Stoll R.N. (07:34 10/04/2016)]
--- NOTE | 2016-10-03 00:57 | ED CLINICAL REPORT ---
Clinical Report - Physicians/Mid Levels [address] [place] [address] 10/02/2016 21:33 Patient: GUSTAVO OSUNA Arrived- By ambulance. Historian- patient. HISTORY OF PRESENT ILLNESS Chief Complaint: DYSPNEA. This started today and is still present (styaing the same). It was abrupt in onset and has been constant but is not gone now. The dyspnea is described as moderate and is worsened by exertion and is improved by rest. The patient has had a cough and wheezing. No sputum production, foot swelling, anxiety, dizziness or tingling. No numbness or palpitations. (patient with history of recent biopsy to the left lung for nodule. Patient ports that he was hospitalized because they "dropped his lung." The patient reports that he was told about the hospital immediately for any signs of shortness of breath. Patient reports no other concerns at this time. Patient reports similar pain to the biopsy sitein the left anterior chest wall.). Similar symptoms previously: None. Recent medical care: The patient was seen recently and hospitalized. REVIEW OF SYSTEMS No headache. All systems otherwise negative, except as recorded above. PAST HISTORY See nurses notes. Medications: Vitamin c Oral daily. Bee Pollen Oral. MSM Oral daily . Gabapentin Oral (Tablet 600 mg), daily. Allergies: Penicillin.(Anaphylaxis). SOCIAL HISTORY Smoker- current status unknown. No alcohol use or drug use. No recent travel. Is a local resident. ADDITIONAL NOTES The nursing notes have been reviewed. PHYSICAL EXAM Vital Signs: 10/02/2016 21:38 BP: 145/88. HR: 95. RR: 20. O2 saturation: 99%. Temp: 98.1 F. Blood pressure normal. Oxygen saturation normal. Appearance: Alert. No acute distress. Eyes: Pupils equal, round and reactive to light. Eyes normal inspection. ENT: Ears normal. Nose normal. Pharynx normal. Uvula midline. Neck: Normal inspection. No jugular venous distention. Neck supple. No meningeal signs or JVD. CVS: Normal heart rate and rhythm. Heart sounds normal. Pulses normal. Respiratory: No respiratory distress. Chest wall tenderness (appropriate to left upper anterior chest wallwith well-healing surgical wound that is less than 0.5 cm and regular incision site consistent withpigtail catheter chest tube site). Breath sounds normal. No wheezes, stridor, rales or rhonchi. Abdomen: Soft and nontender. No organomegaly. Back: Normal inspection. Skin: Skin warm and dry. Normal skin color. No rash. Normal skin turgor. Extremities: Extremities exhibit normal ROM. No lower extremity edema. LABS, X-RAYS, AND EKG EKG: No acute process. No acute ischemia. Normal EKG. Normal sinus rhythm. Rate: 88. Normal P waves. Normal DIANNA. Normal QRS complex. Normal axis. Normal ST and T waves, QT and QTc. The study has been interpreted contemporaneously by me. The study has been independently viewed by me. The EKG appears to be a good tracing. Chest X-ray: No acute disease. Normal lung markings present. Normal heart size. No infiltrate. No fracture. No bony lesion present. (hyperinflated lungs. no pneumothorax. no acute change from prior.). Views: PA. Technique: good. The X-rays were independently viewed by me and interpreted contemporaneously by me. Chest CT: (signs of prior biopsy to the left lung. No signs of pulmonary embolus.). Chest CT performed with contrast. The study was independently viewed by me and interpreted by the radiologist. The study was discussed with the radiologist (Via PACS and phone). Laboratory Tests: CBC w Diff: (NBA: 10/02/2016 21:50) ( MsgRcvd 10/02/2016 22:00) Final results Test Result Flag Units (Reference) WHITE BLOOD COUNT 10.9 K/uL (4.5-11.5) RED BLOOD COUNT 4.75 M/uL (4.50-5.90) HEMOGLOBIN 13.6 gm/dL (13.5-17.5) HEMATOCRIT 42.2 % (41.0-53.0) MEAN CELL VOLUME 89 fL (80-100) MEAN CORPUSCULAR HGB 29 pg (26-34) MEAN CORPUSCULAR HGB CONC 32 g/dL (31-37) RED CELL DISTRIBUTION WIDTH 15.1 H % (11.6-14.8) PLATELET COUNT 224 K/uL (150-400) NEUTROPHIL % 65.2 % (50-75) LYMPH % 25.9 % (25-40) MONO % 6.2 % (3-14) EOSINOPHIL % 2.2 % (0-4) BASOPHIL % 0.5 % (0-2) PT with INR: (NBA: 10/02/2016 21:50) ( WagRcvd 10/02/2016 22:10) Final results Test Result Flag Units (Reference) INR 0.9 (0.8-1.2) Low Intensity Therapy: INR 1.5-2.0 PT range 18.5-23.1Mod.Intensity Therapy: INR 2.0-3.0 PT range 23.1-31.5High Intensity Therapy: INR 2.5-3.5 PT range 27.4-35.5High Intensity Therapy 2: INR 3.0-4.0 PT range 31.5-39.3 APTT 29 SECONDS (24-34) CMP: (NBA: 10/02/2016 21:50) ( WagRcvd 10/02/2016 22:16) Final results Test Result Flag Units (Reference) GLUCOSE 104 mg/dL (70-110) BUN 15 mg/dL (7-18) CREATININE 0.7 mg/dL (0.6-1.3) Estimated GFR >60 mL/min Estimated GFR- >60 mL/min Note: Persistent reduction over 3 months in eGFR<60 mL/min/1.73 m2 defines CKD. Patients with eGFR values>=60 mL/min/1.73 m2 may also have CKD if evidence ofpersistent proteinuria. Additional information may be foundat [email or web address].org. SODIUM 141 mmol/L (136-145) POTASSIUM 4.3 mmol/L (3.5-5.1) CHLORIDE 103 mmol/L (98-107) CARBON DIOXIDE 33 H mmol/L (21-32) CALCIUM 9.3 mg/dL (8.5-10.1) TOTAL PROTEIN 7.8 g/dL (6.4-8.2) ALBUMIN 3.8 g/dL (3.3-5.0) BILIRUBIN, TOTAL 0.3 mg/dL (0.0-1.0) ALKALINE PHOSPHATASE 45 L U/L (46-116) AST (SGOT) 24 U/L (15-37) ALT (SGPT) 34 U/L (12-78) TROPONIN I <0.05 ng/mL (0.00-1.5) TROPONIN REFERENCE RANGE:<0.1 NEGATIVE0.1-1.5 INDETERMINANT>1.5 POSITIVE . PROGRESS AND PROCEDURES Course of Care: the patient is a pleasant 56-year-old male presenting for evaluation of shortness of breath. Patient had recent procedure for lung biopsy. Medical records were obtained from her facility. They have interviewed. 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 The patient will be placed in isolation. Workup for likely pneumothorax will be ordered as the patient has history of COPD and had a procedure recently as well as history of recent pneumothorax. We'll also order EKG and troponin 4 possible acute myocardial infarction however this is a much less likely diagnosis. The patient's workup was remarkable for the abdomen is noted above. Patient did not have any signs of pneumonia or pneumothorax on chest x-ray. Patient with possible DVT given his past history as well as recent procedure. CT pulmonary embolus and will be ordered. We will also be able to investigated the biopsy area and site with a CT scan in greater detail than with a plain film of the chest. Patient is agreeable to the treatment plan. Patient continues to be in isolation. Patient reports improvement with his symptoms with his home nebulizer treatments. Patient's CT scan does not show any acute abnormalities. Had discussion withiinfectious disease doctor in regards to the patient's management for the acid-fast bacilli. The infectious disease doctor states that he will be able to obtain results of the acid-fast bacilli study in the morning and to contact him later however patient will need to be in isolation and admitted to prevent further possible spread of tuberculosis. I've spoken with our hospitalist and aggressive the patient's condition here in the emergency department and need for admission. Do not feel it would be smith to have the patient follow-up as an outpatient given the positive acid-fast bacilli on his lung biopsy. Patient with possible active tuberculosis however patient does not have signs of active tuberculosis on chest x-ray and only has the nodules at this time patient still a infectious hazard in regards to his tuberculosis. Initially, hospitalist accepted patient however on second thought, recommended patient obtain infectious disease consult [facility] management of the likely mycoplasma tuberculosisunfortunately, [facility] did not have any beds available when we had contacted him earlier. The hospitalist also attempted to contact the hospital for avaibeds and there was a possibility of a bed available. We will await their response. The patient is currently not being accepted by the hospitalist. We will attempt to transfer patient. Do not fill patient needs to be discharged at this time. Patient will need further management and monitoring here in the emergency department until an adequate disposition has been decided upon and available. We're able to contact the infectious disease doctor at approximately 8:00 this morning. The infectious disease doctor Dr. Rust will contact us as soon as he is able to pull up the results on the patient. the infectious disease doctor had reviewed the patient's lung biopsy results and recommended that the patient be admitted to the hospital. However, did not feel that antituberculin medications needed at this time. Because of the patient's recent biopsy over [facility] [place] as well as his privileges over [facility] [place], recommended that the patient be transferred there. I've spoken with the halfway house counselor who was extremely helpful in trying to [facility] Once a bed is available, they will be able to accept the patient and will keep the bed available. Did state that this may take several hours to occurand this was at approximately 9:00 this morning. Had informed the patient of the occurrences throughout this entire process. Patient has been Updated. We had the patient transferred over to a more comfortable bed as the emergency department bed mattresses are rather thin and uncomfortable. It also offered patient food and drink while here in the emergency department. Patient is agreeable to staying here in the ED. Patient will remain in isolation contact and respiratory droplet precautions for possible micro-plasm tuberculin-type. Patient is agreeable to treatment and plan. Patient continues to have improved symptoms of his shortness of breath while here in the emergency department. Patient is currently awaiting in bedin no acute distress. We are waiting placement at this time. transportation and bed available over [facility]. Patient subsequent transferred without incidence. Critical care performed (60 minutes). Time is exclusive of separately billable procedures. Time includes: direct patient care, patient reassessment, coordination of patient care, interpretation of data (laboratory data and chest xrays), review of patient's medical records, medical consultation, family consultation regarding treatment decisions and documentation of patient care. Disposition: Transferred to [facility]. CLINICAL IMPRESSION acute acid fast bacilli acute respiratory distress history of COPD. (Electronically signed by Carlitos Grace Dr. 10/08/2016 5:04)
--- NOTE | 2016-10-03 00:57 | ED NURSING NOTES ---
Clinical Report - Nurses [facility] [address] [place] [address] 10/02/2016 21:33 Patient: GUSTAVO OSUNA TRIAGE Triage time 21:37. Acuity: LEVEL 3. Chief Complaint: SHORTNESS OF BREATH and CHEST PAIN. Alert. No acute distress. ( Pt. states he had a lung biopsy on wed at [facility] and they "collapsed my left lung." He was advise if he had any SOB or pain to go to the ED.). SEPSIS SCREEN: Sepsis Screen. Negative (no infection suspected/documented). JOS COMA SCORE: Jos Coma Scale: 15- eyes open spontaneously (4); best verbal response- oriented x 4 (5); best motor response- obeys commands (6). --21:50 Ely Tobias R.N. 21:38 10/02/16. BP: 145/88. HR: 95. RR: 20. O2 saturation: 99%. Temp: 98.1 F. Pain level now 310. --21:50 Ely Tobias R.N. Weight: 63.5 kg stated. Height/Length: 74 inches Per Patient. BMI: 18. --21:38 Ely Tobias R.N. Medications Gabapentin Oral (Tablet 600 mg), daily. --21:40 Ely Tobias R.N. MSM Oral daily . --21:40 Ely Tobias R.N. Bee Pollen Oral. --21:41 Ely Tobias R.N. Vitamin c Oral daily. --21:41 Ely Tobias R.N. Allergies Penicillin.(Anaphylaxis) --21:41 Ely Tobias R.N. The following entry was struck and corrected by Ely Tobias R.N., 21:41 (10/02/16) Reason for correction - other(correction). <<STRICKEN ENTRY-- Penicillin. --21:41 Ely Tobias R.N. --END STRIKE>>. History Arrived by EMS. Historian: patient. Unaccompanied. Primary physician (Dr. Martinez). This started today. Onset. (30 minutes ago). Treatment JAVA ARCHITECT: None. PAST MEDICAL HX: Immunizations: up-to-date. SOCIAL HX: Smoker- current status unknown (stopped Sep 14. Smoked 38 years). Occasional alcohol use. No drug use. No infectious disease exposure. ABUSE ASSESSMENT: No report of abuse. SELF HARM ASSESSMENT: A self harm assessment was performed. The patient answered "no" to the question "Do you have thoughts of harming or killing yourself?" and "Have you recently had thoughts about harming or killing others?". NUTRITIONAL RISK ASSESSMENT: The nutritional risk assessment revealed no deficiencies. FUNCTIONAL ASSESSMENT: Functional assessment: no impairments noted. LEARNING NEEDS ASSESSMENT: The learning needs assessment revealed no barriers. --21:50 Ely Tobias R.N. PROBLEMS: Pulmonary Nodule. Back Pain. COPD - Chronic Obstructive Pulmonary Disease. --21:41 Ely Tobias R.N. Pneumothorax. --21:42 Ely Tobias R.N. ADDITIONAL SURGERIES: Chest tube. --21:42 Ely Tobias R.N. Tonsillectomy. --21:49 Ely Tobias R.N. Interventions ID band on patient. Transported via stretcher. --21:50 Ely Tobias R.N. PHYSICAL ASSESSMENT To room via stretcher. GENERAL / NEURO / PSYCH: Alert. Appears in no acute distress. HEENT: Mucous membranes are pink. RESPIRATORY: Mild respiratory distress. CVS: Normal sinus rhythm noted. Cardiac rhythm: normal sinus rhythm; (97). Capillary refill less than 2 seconds. SKIN: Skin is warm and dry. --21:50 Ely Tobias R.N. NURSING PROGRESS NOTES complex case manager, pulse oximeter and NIBP monitor placed on patient; diamond mounter- Lead II; monitor alarms on. Patient gowned. Head of bed elevated. Two patient identifiers checked. Call light placed in reach. Side rails up x 2. Bed placed in lowest position. Brakes of bed on. Patient ready for evaluation- chart flagged. --21:51 Ely Tobias R.N. 21:51 10/02/2016 Site #1 started via IV in the right forearm with an 18g angiocath, with aseptic technique and good blood return; one attempt. Blood drawn: rainbow set. Labeled in the presence of the patient and sent to the lab. Saline lock flushed with 10 mL saline (Accessed by ARINA Mckeon). --21:51 Ely Tobias R.N. EKG was performed by a tech and shown to the ED physician. --22:33 Yarely, Shay Care transferred and report given (to Jose Angel Barrett RN). --00:03 Ely Tobias R.N. 00:37 10/03/2016 Started bag #1 1000 mL IV Fluids IV NS (Saline); at 1000 mL/hr over 1 hour(s) via site #1 --00:37 Jose Angel Hernandez R.N. 00:40 Patient updated about wait. --00:48 Jose Angel Hernandez R.N. 01:09 10/03/2016 IV Fluids IV NS Discontinued: bag #1 infused. Total amount infused: 1000 mL. IV patency established. IV site checked: no pain, redness, or swelling. IV flushed thoroughly. --01:09 Jose Angel Hernandez R.N. 01:16 Patient moved to room 15 placed in isolation. --01:18 Jose Angel Hernandez R.N. 01:18 10/03/16. BP: 133/85. HR: 80. RR: 16. O2 saturation: 100% on nasal cannula at 2 liters/minute. Pain level now: 0/10. --04:56 Jose Angel Hernandez R.N. The patient is calm and resting quietly. --04:56 Jose Angel Hernandez R.N. 02:13. The patient is sleeping. RESPIRATORY: No respiratory distress. SKIN: Skin is warm and dry. Skin color within normal limits. --04:57 Jose Angel Hernandez R.N. 05:01 10/03/16. HR: 88. RR: 14. O2 saturation: 96% on nasal cannula at 2 liters/minute. Pain level now: 0/10. --05:01 Jose Angel Hernandez R.N. The patient is calm and resting quietly. RESPIRATORY: No respiratory distress. SKIN: Skin is warm and dry. Skin color within normal limits. --05:01 Jose Angel Hernandez R.N. 03:28 Patient asked what prevents him from just walking out, advised pt that we would have to have sign out AMA, patient asked to speak to the DrJose Daniel. Dr. Grace advised. The patient is calm and resting quietly. RESPIRATORY: No respiratory distress. SKIN: Skin is warm and dry. Skin color within normal limits. --06:22 Jose Angel Hernandez R.N. 04:21 Waffle matress placed on pt's bed - pt asked to have it removed stated it is to lumpy. --06:23 Jose Angel Hernandez R.N. 04:30 customer facilities supervisor called asked to have hospital bed brought to the ED. --06:24 Jose Angel Hernandez R.N. 05:13 Patient's room arranged for new bed to fit in room. --06:25 Jose Angel Hernandez R.N. 05:22 hospital bed placed in pt's room, assisted pt move into new bed. --06:25 Jose Angel Hernandez R.N. 04:25 10/03/16. BP: 137/76. HR: 82. RR: 14. O2 saturation: 98% on nasal cannula at 2 liters/minute. --06:27 Jose Angel Hernandez R.N. 05:35 10/03/16. BP: 123/85. HR: 79. RR: 13. O2 saturation: 99% on nasal cannula at 2 liters/minute. --06:28 Jose Angel Hernandez R.N. 06:10 10/03/2016 Duoneb (Ipratropium-Albuterol) Neb TX 1 unit dose given. Given by the nurse. Allergies verified and confirmed 5 rights. --06:29 Jose Angel Hernandez R.N. 06:19. The patient is calm and resting quietly. RESPIRATORY: No respiratory distress. SKIN: Skin is warm and dry. Skin color within normal limits. --06:30 Jose Angel Hernandez R.N. 07:10. Care transferred and report received (from Jose Angel Barrett RN). --07:20 Kaden Stoll R.N. 07:39 10/03/16. Cardiac rhythm: normal sinus rhythm. ( Pt is in negative airflow isolation for possible TB (positive acid fast bacillus).). --07:39 Kaden Stoll R.N. 07:30 10/03/16. HR: 80. RR: 16. O2 saturation: 93% on nasal cannula at 2 liters/minute. Additional comments: sleeping. --07:39 Kaden Stoll R.N. Cardiac rhythm: normal sinus rhythm. --09:08 Kaden Stoll R.N. 09:08 10/03/16. HR: 81. RR: 20. O2 saturation: 95% on nasal cannula at 2 liters/minute. Pain level now: 0/10. Additional comments: asleep. --09:08 Kaden Stoll R.N. late entry -09:40. ( Breakfast tray was ordered.). --10:05 Kaden Stoll R.N. 10:20. Reassurance given. Reassessment after oxygen administered. He reports no complaints. ( SOB). Bed placed in lowest position. Brakes of bed on. ( Bedside commode provided. informed pt of the plan to transfer him to [place] when a bed is ready.). --10:32 Kaden Stoll R.N. 10:55 10/03/16. Head of bed elevated. Reassurance given. The patient reports no complaints and he is calm and resting quietly. Call light placed in reach. Bed placed in lowest position. Brakes of bed on. ( Meal tray provided. updated Pt again in the transfer plan and progress towards transfer.). --10:56 Kaden Stoll R.N. 10:50 10/03/16. BP: 117/81. HR: 69. RR: 20. O2 saturation: 97% on room air. Temp: 97.9 F (oral). Pain level now: 0/10. --10:56 Kaden Stoll R.N. 12:30 10/03/16. HR: 80. RR: 20. O2 saturation: 95% on room air. Pain level now: 0/10. --13:11 Kaden Stoll R.N. DISPOSITION / DISCHARGE 01:20. Patient's personal items include, Other belongings, pt has 02 bottle; items were placed in belongings bag and transported with the patient. He did not have glasses, contacts, dentures or a hearing aid. --01:20 Jose Angel Hernandez R.N. Report was given via a phone call. Report included patient's care, treatment, medications, reviewed medication reconcilliation, and condition (including any recent changes or anticipated changes). All questions were answered. Report was acknowledged. (Frances SANTAhydraulic mechanic). --03:31 Jose Angel Hernandez R.N. 03:34 10/03/16. BP: 141/98. HR: 99. RR: 18. O2 saturation: 99%. Pain level now: 0/10. --03:37 Jose Angel Hernandez R.N. 13:40 10/03/16. Departure time: 1340. Condition at departure: unchanged and stable. Transferred. Summary of care provided to EMS ([facility]). Transported via ambulance by EMS ([facility]). --13:41 Kaden Stoll R.N. 13:38 10/03/16. BP: 132/82. HR: 80. RR: 20. O2 saturation: 95% on room air. Temp: 97.9 F (oral). Pain level now: 0/10. --13:41 Kaden Stoll R.N. late entry -13:30. Report was given to an EMT/P in person. Report included patient's care, treatment, medications, reviewed medication reconcilliation, and condition (including any recent changes or anticipated changes). All questions were answered. Report was acknowledged. --13:45 Kaden Stoll R.N. 13:46 10/03/16. Report was given to a nurse via a phone call. Report included patient's care, treatment, medications, reviewed medication reconcilliation, and condition (including any recent changes or anticipated changes). All questions were answered. Report was acknowledged. (ARINA Chan @ [facility] (room D1053)). --13:46 Kaden Stoll R.N. Locked/Released at 10/04/2016 7:34 by Kaden Stoll R.N.
--- NOTE | 2016-10-03 00:57 | ED ORDER SUMMARY ---
..... Patient: GUSTAVO OSUNA OrderSheet [facility] VisitID: [id number] [place] [address] 56y, M Registration Date/Time: 10/02/2016 ORDER SHEET Weight: 63.5 kg (stated) Allergies: Penicillin GENERAL ORDERS: Chest 1V (recent lung biopsy) Urgent (21:46 10/02/2016 Rasheed Chavis) (Ack 21:49 CHagerty ER Freelance Art Director) (22:02 SReitz R.N.) Bill Cutter (Continuous) (Respiratory Distress) (21:48 10/02/2016 Rasheed Chavis) (21:53 SReirving R.N.) CBC w Diff Urgent (21:48 10/02/2016 Rasheed Chavis) (Ack 21:49 CHagerty ER Freelance Art Director) (22:02 SReitz R.N.) CMP Urgent (21:48 10/02/2016 Rasheed Chavis) (Ack 21:49 CHagerty ER Freelance Art Director) (22:02 SReitz R.N.) PT with INR Urgent (21:48 10/02/2016 Rasheed Chavis) (Ack 21:49 CHagerty ER Freelance Art Director) (22:02 Gloria R.N.) PTT Urgent (21:48 10/02/2016 Rasheed Chavis) (Ack 21:49 CHagerty ER Freelance Art Director) (22:02 SReitz R.N.) Troponin-I Urgent (21:48 10/02/2016 Rasheed Chavis) (Ack 21:49 CHagerty ER Freelance Art Director) (22:02 SReitz R.N.) Pulse oximeter (21:48 10/02/2016 Rasheed Chavis) (21:53 SReitz R.N.) EKG - ER Stat (21:48 10/02/2016 Rasheed Chavis) (Ack 21:49 CHagmartita ER Freelance Art Director) (21:53 SReitz R.N.) Oxygen (2 L/min) (NC) (21:48 10/02/2016 Rasheed Chavis) (21:53 Gloria R.N.) CTA Thorax w Cont (No) (N/A) Urgent (22:36 10/02/2016 Rasheed Chavis) (Ack 22:39 CHagmartita ER Freelance Art Director) (23:19 Giacomoalmaz) - (consult infectious disease at [facility]) (23:58 10/02/2016 Rasheed Chavis) (Ack 0:12 CHagerty ER Freelance Art Director) (1:08 JQuivey R.N.) MEDICATION ORDERS: DuoNeb Neb Tx 1 unit dose (NOW) (06:07 10/03/2016 JQuivey R.N. verbal order read back to Rasheed Chavis) (Ack 6:08 JQuivey R.N.) (6:29 JQuivey R.N.) IV FLUIDS: IV NS : initial bolus 1000 mL (1000 mL/hr), then none - for X1 (NOW) (21:47 10/02/2016 Rasheed Chavis) (Ack 21:53 SReitz R.N.) (0:37 JQuivey R.N.) ORDER SHEET NOTES: [Electronically signed by Kaden Stoll R.N. (07:34 10/04/2016)] [Electronically signed by Carlitos Grace Dr. (05:04 10/08/2016)] [Electronically locked/signed by Kaden Stoll R.N. (07:34 10/04/2016)]
--- NOTE | 2016-10-08 05:04 | ED MAR SUMMARY ---
..... Medication Administration Record [facility] [address] [place] [address] Patient: GUSTAVO OSUNA Visit ID: [id number] 56y, M Weight: 63.5 kg Height/Length: 74 in BMI: 18 ALLERGIES: Penicillin Start 00:37 10/03/2016 Jose Angel Hernandez R.N., Stop 01:09 10/03/2016 Jose Angel Hernandez R.N. Medication Administered: IV NS (SALINE), Dose: IV Fluids over 1 hour(s), Rate: 1000 mL/hr, Dispensed: 1000 mL bag, Site: #1 right forearm. Medication Ordered: IV NS : initial bolus 1000 mL (1000 mL/hr), then none - for X1 (NOW). Given 06:10 10/03/2016 Jose Angel Hernandez RJose DanielN. Medication Administered: DUONEB [NEB TX] (IPRATROPIUM-ALBUTEROL), Dose: 1 unit dose Neb TX. Medication Ordered: DuoNeb Neb Tx 1 unit dose (NOW).
--- NOTE | 2016-10-08 05:04 | ED MAR SUMMARY ---
..... Medication Administration Record Formerly [facility] [address] [place] [address] Patient: GUSTAVO OSUNA Visit ID: [id number] 56y, M Weight: 63.5 kg Height/Length: 74 in BMI: 18 ALLERGIES: Penicillin Start 00:37 10/03/2016 Jose Angel Hernandez R.N., Stop 01:09 10/03/2016 Jose Angel Hernandez R.N. Medication Administered: IV NS (SALINE), Dose: IV Fluids over 1 hour(s), Rate: 1000 mL/hr, Dispensed: 1000 mL bag, Site: #1 right forearm. Medication Ordered: IV NS : initial bolus 1000 mL (1000 mL/hr), then none - for X1 (NOW). Given 06:10 10/03/2016 Jose Angel Hernandez RJose DanielN. Medication Administered: DUONEB [NEB TX] (IPRATROPIUM-ALBUTEROL), Dose: 1 unit dose Neb TX. Medication Ordered: DuoNeb Neb Tx 1 unit dose (NOW).
--- NOTE | 2016-10-08 05:04 | ED DISCHARGE INSTRUCTIONS ---
Patient: GUSTAVO OSUNA General Instructions [facility] VisitID: [id number] [address] [place] [address] 56y, M Registration Date/Time: 10/02/2016 acute acid fast bacilli acute respiratory distress history of COPD. (Electronically signed by Carlitos Grace Dr. 10/08/2016 5:04)
--- NOTE | 2016-10-08 05:04 | ED DISCHARGE INSTRUCTIONS ---
Patient: GUSTAVO OSUNA General Instructions [facility] VisitID: [id number] [address] [place] [address] 56y, M Registration Date/Time: 10/02/2016 acute acid fast bacilli acute respiratory distress history of COPD. (Electronically signed by Carlitos Grace Dr. 10/08/2016 5:04)
--- NOTE | 2016-10-08 05:04 | ED MED RECONCILIATION SUMMARY ---
Patient: GUSTAVO OSUNA Medication Reconciliation Report [facility] VisitID: [id number] [address] [place] [address] 56y, M Registration Date/Time: 10/02/2016 Weight: 63.5 kg Height/Length: 74 in. BMI: 18.0 ALLERGIES: Penicillin The patient's Home Medications are listed below: THE FOLLOWING MEDICATIONS NEED TO BE RECONCILED: Bee Pollen Oral Gabapentin Oral (600 mg), daily MSM Oral daily Vitamin c Oral daily The source(s) of the original Home Medication information: Not obtained. The following Medications were given to the patient in the Emergency Department: IV NS IV Fluids bolus 0, then 1000 mL/hr, administered: 10/03/2016 12:37:00 AM Duoneb [Neb Tx] Neb TX 1 unit dose, administered: 10/03/2016 6:10:00 AM The following Medications were prescribed to the patient: None.
--- NOTE | 2016-10-08 05:04 | ED MED RECONCILIATION SUMMARY ---
Patient: GUSTAVO OSUNA Medication Reconciliation Report [facility] VisitID: [id number] [address] [place] [address] 56y, M Registration Date/Time: 10/02/2016 Weight: 63.5 kg Height/Length: 74 in. BMI: 18.0 ALLERGIES: Penicillin The patient's Home Medications are listed below: THE FOLLOWING MEDICATIONS NEED TO BE RECONCILED: Bee Pollen Oral Gabapentin Oral (600 mg), daily MSM Oral daily Vitamin c Oral daily The source(s) of the original Home Medication information: Not obtained. The following Medications were given to the patient in the Emergency Department: IV NS IV Fluids bolus 0, then 1000 mL/hr, administered: 10/03/2016 12:37:00 AM Duoneb [Neb Tx] Neb TX 1 unit dose, administered: 10/03/2016 6:10:00 AM The following Medications were prescribed to the patient: None.
== END 2016-10-03 13:40 | disposition home or self-care (01) ==
LOC: ED SRH 21:32 → TRANS SRH 10-03 01:19 → ED SRH 10-03 13:40
DX: A31.0 Pulmonary mycobacterial infection (principal); R06.00 Dyspnea, unspecified; J44.9 Chronic obstructive pulmonary disease, unspecified; Z79.899 Other long term (current) drug therapy; Z88.0 Allergy status to penicillin; Z87.891 Personal history of nicotine dependence
CPT/HCPCS: 85241; 90100; 90616; 94001; 94060; 95059